=== PATIENT | male | born 1960 | race Caucasian/White ===

== ENCOUNTER 2023-03-15 09:11 | Outpatient (OUT) | payer MEDICARE, BC, SELFPAY ==
--- NOTE | 2023-03-15 09:33 | US_ITS ---
[address] [address] Patient Name: HERI BARROW MRN: [id number] date: 1960 Sex: M Assigned Patient Location: [place] Current Patient Location: US Accession/Order Number: [id number] Exam Date: 03/15/2023 09:35 Report Date: 03/15/2023 12:51 At the request of: NELSY MC Procedure: US carotid duplex BI EXAMINATION: US carotid duplex BI HISTORY: Bilateral carotid bruits R09.89 COMPARISON: No relevant comparison available. TECHNIQUE: Duplex Doppler ultrasound analysis of carotid and vertebral arteries. . Bilateral carotid arterial duplex examination was performed using B-mode, color flow and spectral analysis. Carotid stenosis is reported according to validated velocity parameters, similar to NASCET criteria. FINDINGS: RIGHT CAROTID ARTERY: Mild atherosclerotic narrowing of the bulb and proximal ICA. RIGHT VERTEBRAL: Antegrade flow. Subclavian: PSV: 181.0 cm/s EDV: 0.0 cm/s CCA: Prox: PSV: 115.9 cm/s EDV: 25.3 cm/s Mid: PSV: 109.0 cm/s EDV: 25.3 cm/s Distal: PSV: 90.4 cm/s EDV: 25.3 cm/s BULB: PSV: 72.5 cm/s EDV: 20.8 cm/s ICA: Prox: PSV: 57.0 cm/s EDV: 19.7 cm/s Mid: PSV: 110.8 cm/s EDV: 41.4 cm/s Distal: PSV: 112.4 cm/s EDV: 46.2 cm/s ECA: PSV: 130.1 cm/s EDV: 17.1 cm/s VERTEBRAL: PSV: 31.7 cm/s EDV: 0.0 cm/s ICA/CCA ratio: PSV: 1.2 EDV: 1.8 LEFT CAROTID ARTERY: Mild atherosclerotic narrowing of the bulb and proximal ICA. LEFT VERTEBRAL: Antegrade flow. Subclavian: PSV: 162.8 cm/s EDV: 0.0 cm/s CCA: Prox: PSV: 105.6 cm/s EDV: 22.9 cm/s Mid: PSV: 113.5 cm/s EDV: 24.8 cm/s Distal: PSV: 91.8 cm/s EDV: 22.9 cm/s BULB: PSV: 99.7 cm/s EDV: 22.9 cm/s ICA: Prox: PSV: 73.2 cm/s EDV: 30.3 cm/s Mid: PSV: 73.2 cm/s EDV: 29.2 cm/s Distal: PSV: 105.1 cm/s EDV: 40.2 cm/s ECA: PSV: 89.6 cm/s EDV: 13.8 cm/s VERTEBRAL: PSV: 64.4 cm/s EDV: 20.4 cm/s ICA/CCA ratio: PSV: 1.1 EDV: 1.8 US/US carotid duplex BI IMPRESSION: 1. 0-49% flow stenosis within the right left carotid arteries. 2. Mild atherosclerotic disease. Electronically authenticated by: SEGUNDO CRUZ Date: 03/15/2023 12:51
[2023-03-15 10:12] LABS: Prostate Specific Antigen Scrn 0.87 ng/mL (<=4.00)
[2023-03-15 10:20] LABS: Alanine Aminotransferase 22 U/L (16-63); Albumin Level 3.7 g/dL (3.4-5.0); Alkaline Phosphatase 60 U/L (46-116); Anion Gap 11.7; Aspartate Amino Transferase 17 U/L (15-37); BUN Creatinine Ratio 16.3; Bilirubin Total 0.3 mg/dL (0.2-1.0); Calcium 9.8 mg/dL (8.5-10.1); Carbon Dioxide 26.2 mmol/L (21.0-32.0); Chloride 103 mmol/L (98-107); Chol HDL Ratio 2.4; Cholesterol 130 mg/dL (<=200); Estimated GFR (African America >60 (>=60); Estimated GFR (Non-African Ame >60 (>=60); Globulin 3.6 g/dL; Glucose 111 mg/dL (74-106); HDL Cholesterol 54 mg/dL (40-60); LDL Cholesterol Calculated 68.8 mg/dL; Potassium 4.9 mmol/L (3.5-5.1); Sodium 136 mmol/L (136-145); Total Protein 7.3 g/dL (6.4-8.2); Triglycerides 36 mg/dL (<=150); VLDL CHOLESTEROL 7.2 mg/dL
[2023-03-15 10:25] LABS: Basophils Absolute Auto 0.1 10^3/uL (0.0-0.1); Basophils Percent Auto 0.9 % (0.2-2.0); Eosinophils Absolute Auto 0.2 10^3/uL (0.0-0.7); Eosinophils Percent Auto 1.9 % (0.9-7.0); Hematocrit 43.9 % (42.0-54.0); Hemoglobin 14.7 g/dL (14.0-18.0); Immature Granulocytes Abs Auto 0.21 10^3/uL (0.00-0.03); Lymphocytes Absolute Auto 1.6 10^3/uL (1.2-3.8); Lymphocytes Percent Auto 14.6 % (20.5-60.0); Mean Corpuscular HGB Conc 33.5 g/dL (29.9-35.2); Mean Corpuscular Hemoglobin 30.8 pg (25.9-34.0); Mean Corpuscular Volume 91.8 fL (80.0-94.0); Mean Platelet Volume 9.1 fL (9.5-13.5); Monocytes Percent Auto 9.1 % (1.7-12.0); Neutrophils Absolute Auto 7.7 10^3/uL (1.4-6.5); Neutrophils Percent Auto 71.5 % (43.0-75.0); Platelet Count 367 10^3/uL (150-450); Red Blood Count 4.78 10^6/uL (4.70-6.10); Red Cell Distribution Width 12.6 % (11.0-15.0); White Blood Count 10.7 10^3/uL (4.0-11.0)
== END 2023-03-15 09:12 | disposition home or self-care (01) ==
LOC: US 09:15
PROVIDERS: PCP Internal Medicine; Visit Provider Internal Medicine
DX: R09.89 Other specified symptoms and signs involving the circulatory and respiratory systems (principal); Z00.00 Encounter for general adult medical examination without abnormal findings; I65.23 Occlusion and stenosis of bilateral carotid arteries; I70.90 Unspecified atherosclerosis
CPT/HCPCS: 36415; 80053; 80061; 85025; 93880; G0103

== ENCOUNTER 2024-02-01 10:05 | Outpatient (OUT) | payer MEDICARE, BC, SELFPAY ==
[2024-02-01 10:28] LABS: Basophils Absolute Auto 0.1 10^3/uL (0.0-0.1); Basophils Percent Auto 0.7 % (0.2-2.0); Eosinophils Absolute Auto 0.3 10^3/uL (0.0-0.7); Eosinophils Percent Auto 2.7 % (0.9-7.0); Hematocrit 43.6 % (42.0-54.0); Hemoglobin 14.4 g/dL (14.0-18.0); Immature Granulocytes Abs Auto 0.21 10^3/uL (0.00-0.03); Immature Granulocytes Pct Auto 2.1 % (0.0-0.5); Lymphocytes Absolute Auto 1.7 10^3/uL (1.2-3.8); Lymphocytes Percent Auto 17.7 % (20.5-60.0); Mean Corpuscular Hemoglobin 30.7 pg (25.9-34.0); Monocytes Absolute Auto 0.8 10^3/uL (0.3-0.8); Monocytes Percent Auto 8.6 % (1.7-12.0); Neutrophils Absolute Auto 6.7 10^3/uL (1.4-6.5); Neutrophils Percent Auto 68.2 % (43.0-75.0); Platelet Count 296 10^3/uL (150-450); Red Blood Count 4.69 10^6/uL (4.70-6.10); Red Cell Distribution Width 12.5 % (11.0-15.0); White Blood Count 9.8 10^3/uL (4.0-11.0)
[2024-02-01 10:48] LABS: Alanine Aminotransferase 23 U/L (16-63); Albumin Globulin Ratio 1.1; Albumin Level 3.8 g/dL (3.4-5.0); Alkaline Phosphatase 69 U/L (46-116); Anion Gap 10.8; Aspartate Amino Transferase 19 U/L (15-37); BUN Creatinine Ratio 13.2; Bilirubin Total 0.6 mg/dL (0.2-1.0); Calcium 9.6 mg/dL (8.5-10.1); Carbon Dioxide 28.3 mmol/L (21.0-32.0); Chloride 101 mmol/L (98-107); Chol HDL Ratio 2.4; Cholesterol 139 mg/dL (<=200); Estimated GFR (African America >60 (>=60); Estimated GFR (Non-African Ame >60 (>=60); Globulin 3.6 g/dL; Glucose 103 mg/dL (74-106); HDL Cholesterol 59 mg/dL (40-60); LDL Cholesterol Calculated 69.6 mg/dL; Potassium 5.1 mmol/L (3.5-5.1); Sodium 135 mmol/L (136-145); Total Protein 7.4 g/dL (6.4-8.2); Triglycerides 52 mg/dL (<=150); VLDL CHOLESTEROL 10.4 mg/dL
== END 2024-02-01 10:06 | disposition home or self-care (01) ==
PROVIDERS: PCP Internal Medicine; Visit Provider Internal Medicine
DX: E78.00 Pure hypercholesterolemia, unspecified (principal); I10 Essential (primary) hypertension; Z12.5 Encounter for screening for malignant neoplasm of prostate; M06.4 Inflammatory polyarthropathy; F17.210 Nicotine dependence, cigarettes, uncomplicated
CPT/HCPCS: 36415; 80053; 80061; 85025; G0103

== ENCOUNTER 2025-02-02 10:05 | Outpatient (OUT) | payer MEDICARE, BC, SELFPAY ==
--- OUTSIDE RECORDS SUMMARY | 2025-02-02 10:11 | XMS_ITS | Referral Summary ---
Author Organization [facility] Address [address] [place] [address] Care Team Providers Care Instrument Technician Name Role Phone Daren Aldridge DO Primary Care Provider [phone] Allergies Active Allergy Reactions Criticality Noted Date Comments Penicillins Shortness of breath High 1960 Other reaction(s): Not available Medications Medication Sig Dispensed Refills Start Date End Date Status benazepril (Lotensin) 5 mg tablet Take 5 mg by mouth in the morning. 02/02/2020 Active simvastatin (Zocor) 40 mg tablet 07/26/2023 Active predniSONE (Deltasone) 5 mg tablet 05/07/2008 Active Active Problems No known active problems Social History Tobacco Use Types Packs/Day Years Used Date Smoking Tobacco: Every Day Cigarettes 0.5 46.9 Started: 03/06/1978 Smokeless Tobacco: Never Tobacco Cessation:Ready to Q uit: Not Asked; Counseling Given: Not Answered Alcohol Use Standard Drinks/Week Comments Yes 0 (1 standard drink = 0.6 oz pure alcohol) Occasional beer or liquor 3-4 times per month [facility] Utilities Answer Date Recorded In the past 12 months has [facility] [employer], gas, oil, or water [employer] threatened to shut off services in your home? No 09/28/2023 Humiliation, Afraid, Rape, and Kick questionnair e Answer Date Recorded Within the last year, have y ou been afraid of your partner or ex-partner? No 09/28/2023 Within the last year, have y ou been humiliated or emotionally abused in other ways by your partner or ex-partner? No Within the last year, have y ou been kicked, hit, slapped, or otherwise physically hurt by your partner or ex-partner? No 09/28/2023 Within the last year, have y ou been raped or forced to have any kind of sexual activity by your partner or ex-partner? No 09/28/2023 Overall Financial Resource Strain (CARDIA) Answe r Date Recorded How hard is it for you to pa y for the very basics like food, housing, medical care, and heating? Not hard at all 09/28/2023 PHQ-2 Answer Date Recorded Patient Health Questionnaire-2 Score 0 09/28/2023 [place] Safety & Environment Answer Date Rec orded Within the last year, have y ou been afraid of your partner or ex-partner? No 09/28/2023 Within the last year, have y ou been humiliated or emotionally abused in other ways by your partner or ex-partner? No Within the last year, have y ou been kicked, hit, slapped, or otherwise physically hurt by your partner or ex-partner? No 09/28/2023 Within the last year, have y ou been raped or forced to have any kind of sexual activity by your partner or ex-partner? No 09/28/2023 In the past year have you been physically or sex ually abused? 09/28/2023 Transportation Answer Date Recorded In the past 12 months, has l ack of transportation kept you from medical appointments or from getting medications? No 09/28/2023 Lack of Transportation (Non-Medical) Not on file 09/28/2023 Housing Stability Vital Sign Answer Maximo e Recorded Unable to Pay for Housing in the Last Year Not o n file 09/28/2023 Number of Places Lived in the Last Year Not on f ile 09/28/2023 In the last 12 months, was t here a time when you did not have a steady place to sleep or slept in a fpc (including now)? No 09/28/2023 Hunger Vital Sign Answer Date Recorded Within the past 12 months, y ou worried that your food would run out before you got the money to buy more. Never true 09/28/19 24 Ran Out of Food in the Last Year Not on file 09/28/2023 Sex and Gender Information Value Date Recorded Sex Assigned at Not on file Gender Identity Not on file Sexual Orientation Not on file Last Filed Vital Signs Vital Sign Reading Time Taken Comments Blood Pressure - - Pulse - - Temperature - - Respiratory Rate 16 08/31/2024 8:15 AM EST Oxygen Saturation - - Inhaled Oxygen Concentration - - Weight 88 kg (194 lb) 08/31/2024 8:15 AM EST Height 172.7 cm (5' 8 ) 08/31/2024 8:15 AM EST Body Mass Index 29.5 08/31/2024 8:15 AM EST Plan of Treatment Not on file Care Teams Instrument Technician Relationship Specialty Start Date End Date Daren Aldridge DO [address] [place] [address] PCP - General 06/14/23
--- OUTSIDE RECORDS SUMMARY | 2025-02-02 10:11 | XMS_ITS | Clinical Summary ---
Author Organization [facility] Address [address] [place] [address] Care Team Providers Care Spring Former Hand Name Role Phone Daren Aldridge DO Primary Care Provider [phone] Allergies Active Allergy Reactions Criticality Noted Date Comments Penicillins Shortness of breath High 1960 Other reaction(s): Not available Medications Medication Sig Dispensed Refills Start Date End Date Status benazepril (Lotensin) 5 mg tablet Take 5 mg by mouth in the morning. 02/02/2020 Active simvastatin (Zocor) 40 mg tablet 07/26/2023 Active predniSONE (Deltasone) 5 mg tablet 05/07/2008 Active Active Problems No known active problems Family History Medical History Relation Name Comments Cancer Mother Margie Rao Relation Name Status Comments Mother Margie Rao Social History Tobacco Use Types Packs/Day Years Used Date Smoking Tobacco: Every Day Cigarettes 0.5 46.9 Started: 03/06/1978 Smokeless Tobacco: Never Tobacco Cessation:Ready to Q uit: Not Asked; Counseling Given: Not Answered Alcohol Use Standard Drinks/Week Comments Yes 0 (1 standard drink = 0.6 oz pure alcohol) Occasional beer or liquor 3-4 times per month [facility] Utilities Answer Date Recorded In the past 12 months has [employer], gas, oil, or water [employer] threatened to shut off services in your [...] Recorded Patient Health Questionnaire-2 Score 0 09/28/2023 [place] Safety & Environment Answer Date Rec orded [...] place to sleep or slept in a halfway (including now)? No 09/28/2023 Hunger Vital Sign [...] 08/31/2024 8:15 AM EST Plan of Treatment Health Maintenance Due Date Last Done Comments CT Colonography 1960 Colonoscopy 1960 Colorectal Cancer Screening 1960 FIT-DNA 1960 FIT 1960 FOBT 1960 Medicare Annual Wellness (AWV) 1960 Sigmoidoscopy 1960 Pneumococcal Vaccine: 65+ Years (1 of 2 - PCV) 02/21/1964 Depression Screening 1970 Fall Risk Screening 2023 COVID-19 Vaccine ( season) 2024 06/10/2024, 06/08/2023, 06/03/2022, Additional history exists Adult Tetanus 05/18/2030 05/18/2020 Zoster Vaccines Completed 01/01/2024, 09/11/2023 Influenza Vaccine Completed 05/15/2024, , 05/10/2022, Additional history exists HIB Vaccines Aged Out No longer eligi ble based on patient's age to complete this topic HPV Vaccines Aged Out No longer eligi ble based on patient's age to complete this topic IPV Vaccines Aged Out No longer eligi ble based on patient's age to complete this topic Meningococcal B Vaccine Aged Out No l onger eligible based on patient's age to complete this topic Meningococcal Vaccine Aged Out No she deborah eligible based on patient's age to complete this topic Rotavirus Vaccines Aged Out No longer eligible based on patient's age to complete this topic Care Teams Spring Former Hand Relationship Specialty Start Date End Date Daren Aldridge DO [address] [place] [address] PCP - General 06/14/23
--- OUTSIDE RECORDS SUMMARY | 2025-02-02 10:13 | XMS_ITS | CCD ---
Author Organization [facility] Care Team Providers Care Shelf Drier Operator Name Role Phone LUIS CARLOS, DR WHITTINGTON Attending Unavailable BALL, DR WHITTINGTON Consulting Unavailable BALL, DR WHITTINGTON Primary Care Unavailable BALL, DR WHITTINGTON Admitting Unavailable BALL, DR WHITTINGTON Consulting Unavailable BALL, DR WHITTINGTON Primary Care Unavailable BALL, DR WHITTINGTON Admitting Unavailable BALL, DR WHITTINGTON Attending Unavailable BALL, DR WHITTINGTON Consulting Unavailable BALL, DR WHITTINGTON Primary Care Unavailable BALL, DR WHITTINGTON Admitting Unavailable BALL, DR WHITTINGTON Attending Unavailable Luis Carlos Daren Unavailable SISSY LOVE Attending Unavailable BALL, DAREN E Referring Unavailable BALL, DAREN E Primary Care Unavailable SISSY LOVE Referring Unavailable LUIS CARLOS, DAREN E Primary Care Unavailable SISSY LOVE Attending Unavailable SISSY LOVE Referring Unavailable BALL, DAREN E Primary Care Unavailable BALL, DAREN E Referring Unavailable BALL, DAREN E Primary Care Unavailable DORCAS LIU Attending Unavailable SISSY LOVE Admitting Unavailable SISSY LOVE Attending Unavailable LUIS CARLOS, DAREN E Primary Care Unavailable SISSY LOVE Attending Unavailable SISSY LOVE Referring Unavailable BALL, DAREN E Primary Care Unavailable ARON, KIP Attending Unavailable BALL, DAREN E Referring Unavailable BALL, DAREN E Primary Care Unavailable ARON, KIP Referring Unavailable BALL, DAREN E Primary Care Unavailable ARON, KIP Admitting Unavailable ARON, KIP Attending Unavailable BALL, DAREN E Primary Care Unavailable FRANCA COBIAN Attending Unavailable BALL, DAREN E Primary Care Unavailable BOBBI RIZO Attending Unavailable BALL, DAREN E Referring Unavailable BALL, DAREN E Primary Care Unavailable SKISAURABH Chahal Attending Unavailable SKIE, SAURABH Attending Unavailable SKIE, SAURABH Attending Unavailable Ball Daren DANIEL Primary Care Provider Allergies Allergy Classification Reported Allergen(s) Allergy Type Date of Onset Reaction(s) Facility (3 sources) Penicillin Drug Allergy Unknown [facility] Other (2 sources) Substance with penicillin structure and antibacterial mechanism of action (substance) Drug allergy Unknown [facility] Other (6 sources) Penicillins; Translations: [PENICILLINS] Propensity to adverse reactions to drug (disorder) 05-07-19 58 Shortness Of Breath [facility] Medications Current Medications Medication Drug Class(es) Dates Sig (Normalized) Sig (Original) aspirin 81 mg delayed release oral tablet (4 sources) Platelet Aggregation Inhibitor, Nonsteroidal Anti-inflammatory Drug take 1 tablet by mouth in the morning aspirin 81 mg Indications: myocardial infarction prevention Take 1 tablet (81 mg total) by mouth in the morning. Indications: treatment to prevent a heart attack. Holding since 02/27. Active benazepril hydrochloride 10 mg oral tablet (14 sources) Angiotensin Converting Enzyme Inhibitor Start: 08-08-2024 End: 09-18-2024 take 1 tablet by mouth once daily Benazepril 10 mg tablet Active 10 MG PO Daily September 18, 2024 12:21pm Start: 01-28-2024 End: 08-08-2024 take 1 tablet by mouth once daily Benazepril 5 mg tablet Discontinued 5 MG PO Daily January 27, 2024 11:00pm August 08, 2024 10:15am oxyCODONE hydrochloride 5 mg oral tablet (1 source) Opioid Agonist Start: 03-06-2024 take 1 tablet by mouth every six hours as needed for pain oxyCODONE (ROXICODONE) 5 mg immediate release tablet Indications: Post-op pain Take 1 tablet (5 mg total) by mouth every 6 (six) hours as needed for pain for up to 10 doses. Max Daily Amount: 20 mg 10 tablet 03/06/2024 Active predniSONE 5 mg oral tablet (6 sources) Start: 08-08-2024 take 1 tablet by mouth once daily as needed for pain Prednisone 5 mg tablet Active 5 MG PO Daily as needed for pain August 08, 2024 12:00am Start: 08-03-2023 take 1 tablet by darian th every twenty-four hours predniSONE 5 MG 1 tablet Orally Once a day for 30 days Jul, Active simvastatin 40 mg oral tablet (12 sources) HMG-CoA Reductase Inhibitor Start: 01-28-2024 take 1 tablet by mouth once daily in the evening Simvastatin 40 mg tablet Active 40 MG PO Every evening January 27, 2024 11:00pm tadalafil 20 mg oral tablet (8 sources) Phosphodiesterase 5 Inhibitor Start: 01-28-2024 take 1 tablet by mouth once daily Tadalafil 20 mg tablet Active 20 MG PO Daily January 27, 2024 11:00pm take 1 tablet by darian every twenty-four hours Cialis 20 MG 1 tablet as needed Orally Once a day Active Completed/Discontinued Medications Medication Drug Class(es) Dates Sig (Normalized) Sig (Original) paxlovid (300/100) 20 x 150 mg & 10 x 100mg tablet therapy pack (1 source) Start: 11-03-2022 take 3 tablets by mouth every twelve hours Paxlovid (300/100) 20 x 150 MG & 10 x 100MG 3 tablets Orally Twice a day for 5 day(s) Oct, Not-Taking/PRN {20 (nirmatrelvir 150 MG Oral Tablet) / 10 (ritonavir 100 MG Oral Tablet) } Pack [Paxlovid 5-Day] (4 sources) Start: 11-03-2022 take 3 tablets by mouth every twelve hours Paxlovid (300/100) 20 x 150 MG & 10 x 100MG 3 tablets Orally Twice a day for 5 day(s) Oct, Not-Taking Start: 11-03-2022 take 3 tablets by mo mah every twelve hours Paxlovid (300/100) 20 x 150 MG & 10 x 100MG 3 tablets Orally Twice a day for 5 day(s) Oct, Active Problems Active Problems Problem Classification Problem Date Documented Date Episodic/Chronic Abdominal hernia (6 sources) Incisional hernia without obstruction or gangrene; Translations: [Ventral hernia without obstruction or gangrene] Onset: 01-04-2024 Resolved: 03-23-2024 01-04-2024 Episodic Deficiency and other anemia (1 source) Anemia; Translations: [Anemia, unspecified] Episodic Diseases of white blood cells (5 sources) Elevated white blood cell count, unspecified; Translations: [Leukocytosis] Onset: 02-21-2022 Chronic Disorders of lipid metabolism (14 sources) Familial hypercholesterolemia; Translations: [Pure hypercholesterolemia] Onset: 02-06-2022 Chronic Essential hypertension (16 sources) Essential (primary) hypertension; Translations: [Essential hypertension] Onset: 02-06-2022 Chronic Fluid and electrolyte disorders (2 sources) Hypo-osmolality and hyponatremia; Translations: [Hyponatremia] Onset: 02-24-2022 Episodic Heart valve disorders (5 sources) Mitral valve regurgitation; Translations: [Nonrheumatic mitral (valve) insufficiency] Chronic Hyperplasia of prostate (10 sources) Lower urinary tract symptoms due to benign prostatic hypertrophy; Translations: [Benign prostatic hyperplasia with lower urinary tract symptoms] 01-29-2024 Chronic Melanomas of skin (5 sources) Malignant melanoma of skin; Translations: [Malignant melanoma of skin, unspecified] Chronic Osteoarthritis (3 sources) Osteoarthritis of joint of right shoulder region; Translations: [Primary osteoarthritis, right shoulder] Chronic Other aftercare (1 source) 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; Translations: [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 THERAPY] Onset: 02-06-2022 Episodic Other circulatory disease (1 source) Other specified symptoms and signs involving the circulatory and respiratory systems Episodic Other connective tissue disease (1 source) Polymyalgia rheumatica; Translations: [Polymyalgia rheumatica] Chronic Other connective tissue disease (1 source) Bicipital tenosynovitis; Translations: [Bicipital tendinitis, right shoulder] Episodic Other connective tissue disease (5 sources) History of polymyalgia rheumatica; Translations: [Personal history of other diseases of the musculoskeletal system and connective tissue] Episodic Other connective tissue disease (5 sources) Acquired trigger finger; Translations: [Trigger finger, left index finger] Episodic Other connective tissue disease (1 source) Trigger finger, right index finger Episodic Other connective tissue disease (2 sources) Trigger finger, unspecified finger; Translations: [Trigger finger, unspecified finger] Onset: 08-31-2024 Episodic Other connective tissue disease (1 source) Triggering of digit; Translations: [Trigger finger, right middle finger] 08-08-2024 Episodic Other connective tissue disease (1 source) Trigger finger, right middle finger; Translations: [Trigger finger (acquired)] 08-08-2024 Episodic Other male genital disorders (5 sources) Impotence of organic origin; Translations: [Erectile dysfunction due to arterial insufficiency] Chronic Other nervous system disorders (5 sources) Carpal tunnel syndrome of right wrist; Translations: [Carpal tunnel syndrome, right upper limb] Chronic Other nervous system disorders (4 sources) Carpal tunnel syndrome; Translations: [Carpal tunnel syndrome, bilateral upper limbs] Chronic Other nervous system disorders (4 sources) Carpal tunnel syndrome, bilateral upper limbs; Translations: [Carpal tunnel syndrome, bilateral upper limbs] Onset: 08-31-2024 Chronic Other nervous system disorders (2 sources) Carpal tunnel syndrome, left upper limb; Translations: [Carpal tunnel syndrome, left upper limb] Onset: 09-28-2023 Chronic Other nervous system disorders (2 sources) Carpal tunnel syndrome, right upper limb; Translations: [Carpal tunnel syndrome, right upper limb] Onset: 09-28-2023 Chronic Other nervous system disorders (1 source) Other acute postprocedural pain; Translations: [Other acute postprocedural pain] Onset: 03-06-2024 Episodic Other nutritional; endocrine; and metabolic disorders (5 sources) Overweight; Translations: [Overweight] Episodic Other nutritional; endocrine; and metabolic disorders (1 source) Overweight Episodic Rheumatoid arthritis and related disease (11 sources) Inflammatory polyarthropathy; Translations: [Inflammatory polyarthropathy] 01-29-2024 Chronic Spondylosis; intervertebral disc disorders; other back problems (5 sources) Cervical spondylosis without myelopathy; Translations: [Other spondylosis with radiculopathy, cervical region] Chronic Substance-related disorders (19 sources) Tobacco user; Translations: [Nicotine dependence, cigarettes, uncomplicated] Chronic Unclassified (1 source) Change in bowel habits [R19.4] Onset: 01-27-2024 Unclassified (1 source) Establish Care Onset: 01-04-2024 Unclassified (1 source) New Patient Onset: 12-13-2023 Past or Other Problems Problem Classification Problem Date Documented Da te Episodic/Chronic Deficiency and other anemia (4 sources) Anemia, unspecified; Translations: [ANEMIA UNSPECIFIED] Onset: 07-16-2021 Episodic Other gastrointestinal disorders (1 source) Change in bowel habit; Translations: [Change in bowel habit] Onset: 12-14-2023 Episodic Other gastrointestinal disorders (4 sources) Altered bowel function; Translations: [Change in bowel habit] Onset: 12-13-2023 12-14-2023 Episodic Other screening for suspected conditions (not mental disorders or infectious disease) (7 sources) Encounter for screening for malignant neoplasm of prostate; Translations: [Screening for malignant neoplasms of prostate] Onset: 08-12-2017 02-01-2024 Episodic Viral infection (1 source) COVID-19 Results Test Name Value Interpretation Reference Range Facility Follow-Upon 08-31-2024 Follow-Up [id number] Heri Rao 1960 M Date Provider Department Center 08/31/2024 SAURABH WALTERS [facility] Family History Problem Relation Age of Onset Cancer Mother Family Status - Relation Status Age at Mother Level of Service:14357 [place] OFFICE/OUTPATIENT ESTABLISHED LOW MDM 20 MIN (25,GC) Reason for Visit and Comments: Follow-up [015454] Follow-up [279952] Normal [facility] Surgical Pathologyon 024 Surgical Pathology Normal [facility] Comment on above: Result Comment: [employer] [facility] [address] [place] [address] Surgical Pathology Consultation Patient Name:HERI RAO.:1960 (Age: 64)Gender:MTaken:03/06/2024eported:03/10/2024hysician(s):Kip Nieves M.D. ([phone])Copy To: Rec. #:[id number]: #[id number] Final Pathologic Diagnosis Incisional hernia repair: Benign mesothelium-lined fibroadipose tissue, consistent with hernia sac. Report Electronically Signed Out ao/03/10/2024jerry Lala MD Interpretation [place] [address], License number: [id number]. Clinical History Incisional hernia simple, umbilical. Gross Description Received in formalin labeled DANIAL, hernia contents is a saccular portion of yellow-mullen fibromembranous soft tissue, 4 x 2.5 x 1 cm in aggregate. The specimen is serially sectioned and no masses hemorrhage or necrosis are identified. Independent Trader cross-sections are submitted in a single cassette. (1, ss, [id number], m1) TB tgb/03/06/2024GR Specimen(s) Received Hernia contents Fee Codes(s): 1; 25064 Basophils Auto (Bld) [#/Vol] on 02-01-2024 Basophils (Bld) [#/Vol] 0.1 10 3/uL 0.0-0.1 [facility] Basophils/100 WBC Auto (Bld) on 02-01-2024 Basophils/100 WBC (Bld) 0.7 % 0.2-2.0 [facility] Cholesterol in LDL Calc [Mas s/Vol]on 02-01-2024 Cholesterol in LDL [Mass/Vol] 69.6 mg/dL [facility] Comment on above: <100 mg/dl [id number] 0-129 mg/dl NEAR OR ABOVE [id number] mg/dl BORDERLINE [id number] mg/dl HIGH>190 mg/dl VERY HIGH Cholesterol in VLDL Calc [Ma ss/Vol]on 02-01-2024 Cholesterol in VLDL [Mass/Vol] 10.4 mg/dL [facility] Eosinophils/100 WBC Auto (Bl d)on 02-01-2024 Eosinophils/100 WBC (Bld) 2.7 % 0.9-7.0 [facility] Erythrocyte distribution wid th Auto (RBC) [Ratio]on 02-01-2024 Erythrocyte distribution width (RBC) [Ratio] 12.5 % 11.0-15.0 [facility] Estimated glomerular filtrat ion rate (GFR) non- Americanon 02-01-2024 GFR/1.73 sq M.predicted among non-blacks MDRD (S/P/Bld) [Vol rate/Area] mL/min/{1.73_m2} >=60 [facility] Globulin Calc (S) [Mass/Vol] on 02-01-2024 Globulin (S) [Mass/Vol] 3.6 g/dL [facility] Hematocrit Auto (Bld) [Volum e fraction]on 02-01-2024 Hematocrit (Bld) [Volume fraction] 43.6 % 42.0-54.0 [facility] Hemoglobin [Mass/volume] in Bloodon 02-01-2024 Hemoglobin (Bld) [Mass/Vol] 14.4 g/dL 14.0-18.0 [facility] Laboratory - Chemistry and C hemistry - challengeon 02-01-2024 Albumin [Mass/Vol] 3.8 g/dL 3.4-5.0 [facility] ALP [Catalytic activity/Vol] 69 U/L 46-116 [facility] ALT [Catalytic activity/Vol] 23 U/L 16-63 [facility] AST [Catalytic activity/Vol] 19 U/L 15-37 [facility] Bilirubin [Mass/Vol] 0.6 mg/dL 0.2-1.0 [facility] Calcium [Mass/Vol] 9.6 mg/dL 8.5-10.1 [facility] Chloride [Moles/Vol] 101 mmol/L 98-107 [facility] Cholesterol [Mass/Vol] 139 mg/dL <=200 [facility] Cholesterol in HDL [Mass/Vol] 59 mg/dL 40-60 [facility] Comment on above: > or =60 mg/dl - LOW CARDIOVASCULAR RISK<40 mg/dl - HIGH CARDIOVASCULAR RISK CO2 [Moles/Vol] 28.3 mmol/L 21.0-32.0 [facility] Creatinine [Mass/Vol] 0.91 mg/dL 0.70-1.30 [facility] GFR/1.73 sq M.predicted MDRD (S/P/Bld) [Vol rate/Area] mL/min/{1.73_m2} >=60 [facility] Glucose [Mass/Vol] 103 mg/dL 74-106 [facility] Potassium [Moles/Vol] 5.1 mmol/L 3.5-5.1 [facility] Protein [Mass/Vol] 7.4 g/dL 6.4-8.2 [facility] Sodium [Moles/Vol] 135 mmol/L Low 136-145 [facility] Triglyceride [Mass/Vol] 52 mg/dL <=150 [facility] Urea nitrogen [Mass/Vol] 12.0 mg/dL 7.0-18.0 [facility] Urea nitrogen/Creatinine [Mass ratio] 13.2 mg/mg [facility] Laboratory - Hematology and Cell countson 02-01-2024 Immature granulocytes/100 WBC (Bld) 2.1 % High 0.0-0.5 [facility] Leukocytes [#/volume] correc mariely for nucleated erythrocytes in Blood by Automated counon 02-01-2024 WBC corrected for nucl RBC Auto (Bld) [#/Vol] 9.8 10 3/uL 4.0-11.0 [facility] Lymphocytes Auto (Bld) [#/Vo l]on 02-01-2024 Lymphocytes (Bld) [#/Vol] 1.7 10 3/uL 1.2-3.8 [facility] Lymphocytes/100 WBC Auto (Bl d)on 02-01-2024 Lymphocytes/100 WBC (Bld) 17.7 % Low 20.5-60.0 [facility] MCH Auto (RBC) [Entitic mass ]on 02-01-2024 MCH (RBC) [Entitic mass] 30.7 pg 25.9-34.0 [facility] MCHC Auto (RBC) [Mass/Vol]on 02-01-2024 MCHC (RBC) [Mass/Vol] 33.0 g/dL 29.9-35.2 [facility] MCV Auto (RBC) [Entitic vol] on 02-01-2024 MCV (RBC) [Entitic vol] 93.0 fL 80.0-94.0 [facility] Monocytes Auto (Bld) [#/Vol] on 02-01-2024 Monocytes (Bld) [#/Vol] 0.8 10 3/uL 0.3-0.8 [facility] Monocytes/100 WBC Auto (Bld) on 02-01-2024 Monocytes/100 WBC (Bld) 8.6 % 1.7-12.0 [facility] Neutrophils Auto (Bld) [#/Vo l]on 02-01-2024 Neutrophils (Bld) [#/Vol] 6.7 10 3/uL High 1.4-6.5 [facility] Neutrophils/100 WBC Auto (Bl d)on 02-01-2024 Neutrophils/100 WBC (Bld) 68.2 % 43.0-75.0 [facility] No Panel Informationon 01-31 Eosinophils # (Auto) 0.3 10 3/uL 0.0-0.7 [facility] Immature Granulocyte # (Auto) 0.21 10 3/uL High 0.00-0.03 [facility] Prostate Specific Antigen Screen 0.70 ng/mL <=4.00 [facility] Platelet mean volume Auto (B ld) [Entitic vol]on 02-01-2024 Platelet mean volume (Bld) [Entitic vol] 9.0 fL Low 9.5-13.5 [facility] Platelets Auto (Bld) [#/Vol] on 02-01-2024 Platelets (Bld) [#/Vol] 296 10 3/uL 150-450 [facility] RBC Auto (Bld) [#/Vol]on RBC (Bld) [#/Vol] 4.69 10 6/uL Low 4.70-6.10 [facility] Serum or plasma albumin/glob ulin mass ratioon 02-01-2024 Albumin/Globulin [Mass ratio] 1.1 {ratio} [facility] Serum or plasma anion gap de terminationon 02-01-2024 Anion gap [Moles/Vol] 10.8 mmol/L [facility] Serum or plasma total choles terol/high density lipoprotein (HDL) cholesterol mass manuelito 02-01-2024 Cholesterol.total/Ch olesterol in HDL [Mass ratio] 2.4 {ratio} [facility] Comment on above: 3.3 - 4.4 LOW RISK4. 4 - 7.1 AVERAGE RISK7.1 - 11.0 MODERATE RISK>11.[address] ABDOMEN AND PELVIS W CONT on 12-27-2023 CT ABDOMEN AND PELVIS W CONT CT ABDOMEN AND PELVIS W CONT CT ABDOMEN AND PELVIS W CONT CLINICAL INFORMATION: Palpable periumbilical lump, concern for hernia. Constipation. History of diverticulitis with partial colectomy 12 years ago. COMPARISON: CT abdomen and pelvis with oral and IV contrast 02/22/2012. TECHNIQUE: CT of the abdomen/pelvis with intravenous contrast. All CT scans at this facility use dose modulation, iterative reconstruction, and/or weight based dosing when appropriate to reduce radiation dose to as low as reasonably achievable. FINDINGS: LOWER CHEST: Lung bases are clear. No pleural or pericardial effusion. LIVER AND BILIARY: Scattered subcentimeter hypoattenuating lesions throughout the liver are too small to characterize, but are statistically likely to represent cysts. The gallbladder is unremarkable. PANCREAS: Unremarkable morphology. No peripancreatic fluid, ductal dilatation, or mass. SPLEEN: Not enlarged. ADRENALS: Unremarkable morphology. KIDNEYS: Symmetric enhancement bilaterally. Unremarkable size and morphology. No renal calculi or collecting system dilatation visualized. GI TRACT AND PERITONEUM: Unremarkable morphology of the stomach. Moderate duodenal diverticulum. Normal caliber small and large bowel. The appendix is unremarkable. VASCULATURE: Right-sided IVC. The abdominal aorta is nonaneurysmal. Aortoiliac calcifications. The portal, splenic, and superior mesenteric veins are grossly patent. Rectosigmoid anastomosis site appears unremarkable. LYMPH NODES: No enlarged mesenteric or retroperitoneal lymph nodes. MUSCULOSKELETAL: No aggressive osseous lesions. Multilevel degenerative changes of the thoracolumbar spine. There is a midline supraumbilical fat-containing hernia with defect measuring 0.5 cm (602, 92/171). No bowel containing hernia identified. PELVIS: The bladder and prostate are unremarkable. IMPRESSION: * 0.5 cm supraumbilical fat-containing hernia. No bowel containing hernia is identified. * Duodenal diverticulum. Approved by Resident Alberto Duke MD on 12/27/2023 9:40 AM IDawit MD have personally reviewed the image(s) and agree with and/or edited the report Finalized by Dawit Capps MD on 12/27/2023 10:33 AM [facility] CREATININEon 12-13-2023 Creatinine [Mass/Vol] 0.93 mg/dL Normal 0.60-1.30 [facility] Comment on above: Result Comment: METH OD TRACEABLE TO IDMS STANDARD Performed By: #### C RT #### [facility] ([id number]) [address], [address] [place] [address] eGFR (CKD-EPI) NON-RACE DEPENDENT >90 Normal >59 [facility] Comment on above: Result Comment: Reported eGFR is based on the CKD-EPI 2020 equation that does not use a race coefficient. Performed By: #### C RT #### [facility] ([id number]) [address], [address] [place] [address] Follow-Upon 11-09-2023 Follow-Up [id number] Heri Rao 1960 M Date Provider Department Center 11/09/2023 SAURABH WALTERS [facility] Family History Problem Relation Age of Onset Cancer Mother Family Status - Relation Status Age at Mother Level of Service:27909 [place] OFFICE/OUTPATIENT ESTABLISHED SF MDM 10 MIN Reason for Visit and Comments: Follow-up [472727] Normal [facility] Follow-Upon 09-28-2023 Follow-Up [id number] Heri Rao 1960 M Date Provider Department Center 09/28/2023 SAURABH WALTERS [facility] Family History Problem Relation Age of Onset Cancer Mother Family Status - Relation Status Age at Mother Level of Service:01549 [place] OFFICE/OUTPATIENT ESTABLISHED LOW MDM 20 MIN (25,GC,50) Reason for Visit and Comments: Follow-up [893220] Follow-up [865529] [facility] OSMOLALITYon 02-24-2022 Osmolality [Osmolality] 277 mosm/kg Critically low 280-301 [facility] Comment on above: Performed By: #### P SASC #### [facility] [address] [place] [address] Dr. Helen Cifuentes OSMOLALITY URINEon Osmolality, Urine 232 mOsmol/kg Normal [facility] Comment on above: Result Comment: 24 h r : 300 - 900 Random: 50 - 1400 After 12hr fluid restriction: >850 Performed By: #### O SMOU #### [facility] [address] [place] [address] Dr. Helen Cifuentes CBC AUTO DIFFon 02-21-2022 BASO # 0.1 103/ul Normal 0.0-0.1 [facility] Comment on above: Performed By: #### C BC #### [facility] [address] [place] [address] Dr. Helen Cifuentes Basophils/100 WBC (Bld) 1.1 % Normal 0.2-2.0 [facility] Comment on above: Performed By: #### C BC #### [facility] [address] [place] [address] Dr. Helen Cifuentes EO # 0.3 103/ul Normal 0.0-0.7 [facility] Comment on above: Performed By: #### C BC #### [facility] [address] [place] [address] Dr. Helen Cifuentes Eosinophils/100 WBC (Bld) 3.6 % Normal 0.9-7.0 [facility] Comment on above: Performed By: #### C BC #### [facility] [address] [place] [address] Dr. Helen Cifuentes Erythrocyte distribution width (RBC) [Ratio] 13.1 % Normal 11.0-15.0 [facility] Comment on above: Performed By: #### C BC #### [facility] [address] [place] [address] Dr. Helen Cifuentes Hematocrit (Bld) [Volume fraction] 44.2 % Normal 42.0-54.0 [facility] Comment on above: Performed By: #### C BC #### [facility] [address] [place] [address] Dr. Helen Cifuentes Hemoglobin (Bld) [Mass/Vol] 14.6 g/dL Normal 14.0-18.0 [facility] Comment on above: Performed By: #### C BC #### [facility] [address] [place] [address] Dr. Helen Cifuentes IG # 0.14 10e3/ul Critically high 0.00-0.03 [facility] Comment on above: Performed By: #### C BC #### [facility] [address] [place] [address] Dr. Helen Cifuentes IG % 1.5 % Critically high 0.0-0.5 [facility] Comment on above: Performed By: #### C BC #### [facility] [address] [place] [address] Dr. Helen Cifuentes LYMPH # 1.4 103/ul Normal 1.2-3.8 [facility] Comment on above: Performed By: #### C BC #### [facility] [address] [place] [address] Dr. Helen Cifuentes Lymphocytes/100 WBC (Bld) 15.0 % Critically low 20.5-60.0 [facility] Comment on above: Performed By: #### C BC #### [facility] [address] [place] [address] Dr. Helen Cifuentes MANUAL DIFF REQ NO Normal [facility] Comment on above: Performed By: #### C BC #### [facility] [address] [place] [address] Dr. Helen Cifuentes MCH (RBC) [Entitic mass] 30.4 pg Normal 25.9-34.0 [facility] Comment on above: Performed By: #### C BC #### [facility] [address] [place] [address] Dr. Helen Cifuentes MCHC (RBC) [Mass/Vol] 33.0 g/dL Normal 29.9-35.2 [facility] Comment on above: Performed By: #### C BC #### [facility] [address] [place] [address] Dr. Helen Cifuentes MCV (RBC) [Entitic vol] 92.1 fL Normal 80.0-94.0 [facility] Comment on above: Performed By: #### C BC #### [facility] [address] [place] [address] Dr. Helen Cifuentes MONO # 0.8 103/ul Normal 0.3-0.8 [facility] Comment on above: Performed By: #### C BC #### [facility] [address] [place] [address] Dr. Helen Cifuentes Monocytes/100 WBC (Bld) 8.9 % Normal 1.7-12.0 [facility] Comment on above: Performed By: #### C BC #### [facility] [address] [place] [address] Dr. Helen Cifuentes NEUT # 6.6 103/ul Critically high 1.4-6.5 [facility] Comment on above: Performed By: #### C BC #### [facility] [address] [place] [address] Dr. Helen Cifuentes Neutrophils/100 WBC (Bld) 69.9 % Normal 43.0-75.0 [facility] Comment on above: Performed By: #### C BC #### [facility] [address] [place] [address] Dr. Helen Cifuentes Platelet mean volume (Bld) [Entitic vol] 8.7 fL Critically low 9.5-13.5 [facility] Comment on above: Performed By: #### C BC #### [facility] [address] [place] [address] Dr. Helen Cifuentes PLT 296 103/ul Normal 150-450 [facility] Comment on above: Performed By: #### C BC #### [facility] [address] [place] [address] Dr. Helen Cifuentes RBC 4.80 106/ul Normal 4.70-6.10 [facility] Comment on above: Performed By: #### C BC #### [facility] [address] [place] [address] Dr. Helen Cifuentes WBC 9.5 103/ul Normal 4.0-11.0 [facility] Comment on above: Performed By: #### C BC #### [facility] [address] [place] [address] Dr. Helen Cifuentes PROF CHEM 8 (BAS METB)on Anion gap [Moles/Vol] 10.9 mmol/L Normal [facility] Comment on above: Performed By: #### B MP #### [facility] [address] [place] [address] Dr. Helen Cifuentes Calcium [Mass/Vol] 9.5 mg/dL Normal 8.5-10.1 [facility] Comment on above: Performed By: #### B MP #### [facility] [address] [place] [address] Dr. Helen Cifuentes Chloride [Moles/Vol] 102 mmol/L Normal 98-107 [facility] Comment on above: Performed By: #### B MP #### [facility] [address] [place] [address] Dr. Helen Cifuentes CO2 [Moles/Vol] 28.7 mmol/L Normal 21.0-32.0 [facility] Comment on above: Performed By: #### B MP #### [facility] [address] [place] [address] Dr. Helen Cifuentes Creatinine [Mass/Vol] 0.88 mg/dL Normal 0.70-1.30 [facility] Comment on above: Performed By: #### B MP #### [facility] [address] [place] [address] Dr. Helen Cifuentes EGFR-AF ZAMBIAN >60 Normal >=60 [facility] Comment on above: Performed By: #### B MP #### [facility] [address] [place] [address] Dr. Helen Cifuentes EGFR-NON AF ZAMBIAN >60 Normal >=60 [facility] Comment on above: Performed By: #### B MP #### [facility] [address] [place] [address] Dr. Helen Cifuentes Glucose [Mass/Vol] 106 mg/dL Normal 74-106 [facility] Comment on above: Performed By: #### B MP #### [facility] [address] [place] [address] Dr. Helen Cifuentes Potassium [Moles/Vol] 4.6 mmol/L Normal 3.5-5.1 [facility] Comment on above: Performed By: #### B MP #### [facility] [address] [place] [address] Dr. Helen Cifuentes Sodium [Moles/Vol] 137 mmol/L Normal 136-145 [facility] Comment on above: Performed By: #### B MP #### [facility] [address] [place] [address] Dr. Helen Cifuentes Urea nitrogen [Mass/Vol] 13.0 mg/dL Normal 7.0-18.0 [facility] Comment on above: Performed By: #### B MP #### [facility] [address] [place] [address] Dr. Helen Cifuentes Urea nitrogen/Creatinine [Mass ratio] 14.8 mg/mg Normal [facility] Comment on above: Performed By: #### B MP #### [facility] [address] [place] [address] Dr. Helen Cifuentes SODIUM RANDOM URINEon 2021 Sodium (U) [Moles/Vol] 40 mmol/L Normal 30-90 [facility] Comment on above: Performed By: #### N AU #### [facility] [address] [place] [address] Dr. Helen Cifuentes CBC AUTO DIFFon 01-31-2022 BASO # 0.1 103/ul Normal 0.0-0.1 [facility] Comment on above: Performed By: #### C BC #### [facility] [address] [place] [address] Dr. Helen Cifuentes Basophils/100 WBC (Bld) 0.7 % Normal 0.2-2.0 [facility] Comment on above: Performed By: #### C BC #### [facility] [address] [place] [address] Dr. Helen Cifuentes EO # 0.4 103/ul Normal 0.0-0.7 [facility] Comment on above: Performed By: #### C BC #### [facility] [address] [place] [address] Dr. Helen Cifuentes Eosinophils/100 WBC (Bld) 2.1 % Normal 0.9-7.0 [facility] Comment on above: Performed By: #### C BC #### [facility] [address] [place] [address] Dr. Helen Cifuentes Erythrocyte distribution width (RBC) [Ratio] 13.0 % Normal 11.0-15.0 [facility] Comment on above: Performed By: #### C BC #### [facility] [address] [place] [address] Dr. Helen Cifuentes Hematocrit (Bld) [Volume fraction] 43.8 % Normal 42.0-54.0 [facility] Comment on above: Performed By: #### C BC #### [facility] [address] [place] [address] Dr. Helen Cifuentes Hemoglobin (Bld) [Mass/Vol] 14.9 g/dL Normal 14.0-18.0 [facility] Comment on above: Performed By: #### C BC #### [facility] [address] [address] [address] Helen Cifuentes IG # 0.18 10e3/ul Critically high 0.00-0.03 [facility] Comment on above: Performed By: #### C BC #### [facility] [address] [address] [address] Helen Cifuentes IG % 1.1 % Critically high 0.0-0.5 [facility] Comment on above: Performed By: #### C BC #### [facility] [address] [address] [address] Helen Cifuentes LYMPH # 1.7 103/ul Normal 1.2-3.8 [facility] Comment on above: Performed By: #### C BC #### [facility] [address] [place] [address] Dr. Helen Cifuentes Lymphocytes/100 WBC (Bld) 10.1 % Critically low 20.5-60.0 [facility] Comment on above: Performed By: #### C BC #### [facility] [address] [place] [address] Dr. Helen Cifuentes MANUAL DIFF REQ NO Normal [facility] Comment on above: Performed By: #### C BC #### [facility] [address] [place] [address] Dr. Helen Cifuentes MCH (RBC) [Entitic mass] 30.7 pg Normal 25.9-34.0 [facility] Comment on above: Performed By: #### C BC #### [facility] [address] [address] [address] Helen Cifuentes MCHC (RBC) [Mass/Vol] 34.0 g/dL Normal 29.9-35.2 [facility] Comment on above: Performed By: #### C BC #### [facility] [address] [place] [address] Dr. Helen Cifuentes MCV (RBC) [Entitic vol] 90.1 fL Normal 80.0-94.0 [facility] Comment on above: Performed By: #### C BC #### [facility] [address] [address] [address] Helen Cifuentes MONO # 1.1 103/ul Critically high 0.3-0.8 [facility] Comment on above: Performed By: #### C BC #### [facility] [address] [address] [address] Helen Cifuentes Monocytes/100 WBC (Bld) 6.5 % Normal 1.7-12.0 [facility] Comment on above: Performed By: #### C BC #### [facility] [address] [address] [address] Helen Cifuentes NEUT # 13.1 103/ul Critically high 1.4-6.5 [facility] Comment on above: Performed By: #### C BC #### [facility] [address] [address] [address] Helen Cifuentes Neutrophils/100 WBC (Bld) 79.5 % Critically high 43.0-75.0 [facility] Comment on above: Performed By: #### C BC #### [facility] [address] [address] [address] Helen Cifuentes Platelet mean volume (Bld) [Entitic vol] 9.2 fL Critically low 9.5-13.5 [facility] Comment on above: Performed By: #### C BC #### [facility] [address] [address] [address] Helen Cifuentes PLT 302 103/ul Normal 150-450 [facility] Comment on above: Performed By: #### C BC #### [facility] [address] [address] [address] Helen Cifuentes RBC 4.86 106/ul Normal 4.70-6.10 [facility] Comment on above: Performed By: #### C BC #### [facility] [address] [address] [address] Helen Cifuentes WBC 16.4 103/ul Critically high 4.0-11.0 [facility] Comment on above: Performed By: #### C BC #### [facility] [address] [place], [place] [address] Dr. Helen Cifuentes LIPID PROFILEon 01-31-2022 CHOL-HDL RATIO NORM SEE BELOW Normal [facility] Comment on above: Result Comment: 3.3 - 4.4 LOW RISK 4.4 - 7.1 AVERAGE RISK 7.1 - 11.0 MODERATE RISK >11.0 HIGH RISK Performed By: #### P SASC #### [facility] [address] [address] [address] Helen Cifuentes Cholesterol [Mass/Vol] 116 mg/dL Normal <=200 [facility] Comment on above: Performed By: #### P SASC #### [facility] [address] [address] [address] Helen Cifuentes Cholesterol in HDL [Mass/Vol] 49 mg/dL Normal 40-60 [facility] Comment on above: Performed By: #### P SASC #### [facility] [address] [address] [address] Helen Cifuentes Cholesterol in LDL [Mass/Vol] 58.4 mg/dL Normal [facility] Comment on above: Performed By: #### P SASC #### [facility] [address] [address] [address] Helen Cifuentes Cholesterol.total/Ch olesterol in HDL [Mass ratio] 2.4 {ratio} Normal [facility] Comment on above: Performed By: #### P SASC #### [facility] [address] [address] [address] Helen Cifuentes HDL NORMAL > or = 60 mg/dl - LOW CARDIOVASCULAR RISK <40 mg/dl - HIGH CARDIOVASCULAR RISK Normal [facility] Comment on above: Performed By: #### P SASC #### [facility] [address] [address] [address] Helen Cifuentes LDL CALC NORMAL SEE BELOW Normal [facility] Comment on above: Result Comment: <100 mg/dl OPTIMAL 100 - 129 mg/dl NEAR OR ABOVE OPTIMAL 130 - 159 mg/dl BORDERLINE HIGH 160 - 189 mg/dl HIGH >190 mg/dl VERY HIGH Performed By: #### P SASC #### [facility] [address] [place] [address] Dr. Helen Cifuentes Triglyceride [Mass/Vol] 43 mg/dL Normal <=150 [facility] Comment on above: Performed By: #### P SASC #### [facility] [address] [place] [address] Dr. Helen Cifuentes VLDL CALC 8.6 mg/dL Normal [facility] Comment on above: Performed By: #### P SASC #### [facility] [address] [address] [address] Helen Cifuentes PROF 14(COMP METB)on 022 Albumin [Mass/Vol] 3.8 g/dL Normal 3.4-5.0 [facility] Comment on above: Performed By: #### P SASC #### [facility] [address] [place] [address] Dr. Helen Cifuentes Albumin/Globulin [Mass ratio] 1.1 {ratio} Normal [facility] Comment on above: Performed By: #### P SASC #### [facility] [address] [place] [address] Dr. Helen Cifuentes ALP [Catalytic activity/Vol] 71 U/L Normal 46-116 [facility] Comment on above: Performed By: #### P SASC #### [facility] [address] [place] [address] Dr. Helen Cifuentes ALT [Catalytic activity/Vol] 21 U/L Normal 16-63 [facility] Comment on above: Performed By: #### P SASC #### [facility] [address] [place] [address] Dr. Helen Cifuentes Anion gap [Moles/Vol] 13.0 mmol/L Normal [facility] Comment on above: Performed By: #### P SASC #### [facility] [address] [place] [address] Dr. Helen Cifuentes AST [Catalytic activity/Vol] 20 U/L Normal 15-37 [facility] Comment on above: Performed By: #### P SASC #### [facility] [address] [place] [address] Dr. Helen Cifuentes Bilirubin [Mass/Vol] 0.5 mg/dL Normal 0.2-1.0 [facility] Comment on above: Performed By: #### P SASC #### [facility] [address] [address] [address] Helen Cifuentes Calcium [Mass/Vol] 9.5 mg/dL Normal 8.5-10.1 [facility] Comment on above: Performed By: #### P SASC #### [facility] [address] [address] [address] Helen Cifuentes Chloride [Moles/Vol] 98 mmol/L Normal 98-107 [facility] Comment on above: Performed By: #### P SASC #### [facility] [address] [place] [address] Dr. Helen Cifuentes CO2 [Moles/Vol] 22.4 mmol/L Normal 21.0-32.0 [facility] Comment on above: Performed By: #### P SASC #### [facility] [address] [place] [address] Dr. Helen Cifuentes Creatinine [Mass/Vol] 0.84 mg/dL Normal 0.70-1.30 [facility] Comment on above: Performed By: #### P SASC #### [facility] [address] [place] [address] Dr. Helen Cifuentes EGFR-AF ZAMBIAN >60 Normal >=60 [facility] Comment on above: Performed By: #### P SASC #### [facility] [address] [place] [address] Dr. Helen Cifuentes EGFR-NON AF ZAMBIAN >60 Normal >=60 [facility] Comment on above: Performed By: #### P SASC #### [facility] [address] [place] [address] Dr. Helen Cifuentes Globulin (S) [Mass/Vol] 3.4 g/dL Normal [facility] Comment on above: Performed By: #### P SASC #### [facility] [address] [place] [address] Dr. Helen Cifuentes Glucose [Mass/Vol] 100 mg/dL Normal 74-106 [facility] Comment on above: Performed By: #### P SASC #### [facility] [address] [place] [address] Dr. Helen Cifuentes Potassium [Moles/Vol] 4.4 mmol/L Normal 3.5-5.1 [facility] Comment on above: Performed By: #### P SASC #### [facility] [address] [place] [address] Dr. Helen Cifuentes Protein [Mass/Vol] 7.2 g/dL Normal 6.4-8.2 [facility] Comment on above: Performed By: #### P SASC #### [facility] [address] [place] [address] Dr. Helen Cifuentes Sodium [Moles/Vol] 129 mmol/L Critically low 136-145 [facility] Comment on above: Performed By: #### P SASC #### [facility] [address] [place] [address] Dr. Helen Cifuentes Urea nitrogen [Mass/Vol] 10.0 mg/dL Normal 7.0-18.0 [facility] Comment on above: Performed By: #### P SASC #### [facility] [address] [place] [address] Dr. Helen Cifuentes Urea nitrogen/Creatinine [Mass ratio] 11.9 mg/mg Normal [facility] Comment on above: Performed By: #### P SASC #### [facility] [address] [place] [address] Dr. Helen Cifuentes CBC AUTO DIFFon 07-16-2021 BASO # 0.1 103/ul Normal 0.0-0.1 [facility] Comment on above: Performed By: #### C BC #### [facility] [address] [place] [address] Dr. Helen Cifuentes Basophils/100 WBC (Bld) 1.0 % Normal 0.2-2.0 [facility] Comment on above: Performed By: #### C BC #### [facility] [address] [place] [address] Dr. Helen Cifuentes EO # 0.2 103/ul Normal 0.0-0.7 [facility] Comment on above: Performed By: #### C BC #### [facility] [address] [place] [address] Dr. Helen Cifuentes Eosinophils/100 WBC (Bld) 2.0 % Normal 0.9-7.0 [facility] Comment on above: Performed By: #### C BC #### [facility] [address] [place] [address] Dr. Helen Cifuentes Erythrocyte distribution width (RBC) [Ratio] 12.9 % Normal 11.0-15.0 [facility] Comment on above: Performed By: #### C BC #### [facility] [address] [place] [address] Dr. Helen Cifuentes Hematocrit (Bld) [Volume fraction] 43.6 % Normal 42.0-54.0 [facility] Comment on above: Performed By: #### C BC #### [facility] [address] [place] [address] Dr. Helen Cifuentes Hemoglobin (Bld) [Mass/Vol] 14.5 g/dL Normal 14.0-18.0 [facility] Comment on above: Performed By: #### C BC #### [facility] [address] [place] [address] Dr. Helen Cifuentes IG # 0.19 10e3/ul Critically high 0.00-0.03 [facility] Comment on above: Performed By: #### C BC #### [facility] [address] [place] [address] Dr. Helen Cifuentes IG % 2.0 % Critically high 0.0-0.5 [facility] Comment on above: Performed By: #### C BC #### [facility] [address] [place] [address] Dr. Helen Cifuentes LYMPH # 1.6 103/ul Normal 1.2-3.8 [facility] Comment on above: Performed By: #### C BC #### [facility] [address] [place] [address] Dr. Helen Cifuentes Lymphocytes/100 WBC (Bld) 16.7 % Critically low 20.5-60.0 [facility] Comment on above: Performed By: #### C BC #### [facility] [address] [place] [address] Dr. Helen Cifuentes MANUAL DIFF REQ NO Normal [facility] Comment on above: Performed By: #### C BC #### [facility] [address] [place] [address] Dr. Helen Cifuentes MCH (RBC) [Entitic mass] 30.5 pg Normal 25.9-34.0 [facility] Comment on above: Performed By: #### C BC #### [facility] [address] [place] [address] Dr. Helen Cifuentes MCHC (RBC) [Mass/Vol] 33.3 g/dL Normal 29.9-35.2 [facility] Comment on above: Performed By: #### C BC #### [facility] [address] [place] [address] Dr. Helen Cifuetnes MCV (RBC) [Entitic vol] 91.6 fL Normal 80.0-94.0 [facility] Comment on above: Performed By: #### C BC #### [facility] [address] [place] [address] Dr. Helen Cifuentes MONO # 0.7 103/ul Normal 0.3-0.8 [facility] Comment on above: Performed By: #### C BC #### [facility] [address] [place] [address] Dr. Helen Cifuentes Monocytes/100 WBC (Bld) 7.2 % Normal 1.7-12.0 [facility] Comment on above: Performed By: #### C BC #### [facility] [address] [place] [address] Dr. Helen Cifuentes NEUT # 6.7 103/ul Critically high 1.4-6.5 [facility] Comment on above: Performed By: #### C BC #### [facility] [address] [place] [address] Dr. Helen Cifuentes Neutrophils/100 WBC (Bld) 71.1 % Normal 43.0-75.0 [facility] Comment on above: Performed By: #### C BC #### [facility] [address] [place] [address] Dr. Helen Cifuentes Platelet mean volume (Bld) [Entitic vol] 8.9 fL Critically low 9.5-13.5 [facility] Comment on above: Performed By: #### C BC #### [facility] [address] [place] [address] Dr. Helen Cifuentes PLT 286 103/ul Normal 150-450 [facility] Comment on above: Performed By: #### C BC #### [facility] [address] [place] [address] Dr. Helen Cifuentes RBC 4.76 106/ul Normal 4.70-6.10 [facility] Comment on above: Performed By: #### C BC #### [facility] [address] [place] [address] Dr. Helen Cifuentes WBC 9.4 103/ul Normal 4.0-11.0 [facility] Comment on above: Performed By: #### C BC #### [facility] [address] [place] [address] Dr. Helen Cifuentes FERRITINon 07-16-2021 Ferritin [Mass/Vol] 123.0 ng/mL Normal 17.9-464.0 [facility] Comment on above: Performed By: #### B 12FOL, FERR, FETIBC #### [facility] [address] [place] [address] Dr. Helen Cifuentes IRON AND TIBCon 07-16-2021 % SATURATION 16.2 % Normal [facility] Comment on above: Performed By: #### B 12FOL, FERR, FETIBC #### [facility] [facility] [address] [place] [address] Dr. Helen Cifuentes Iron [Mass/Vol] 53.0 ug/dL Normal 49.0-181.0 [facility] Comment on above: Performed By: #### B 12FOL, FERR, FETIBC #### [facility] [address] [place] [address] Dr. Helen Cifuentes TIBC DIRECT 327.0 ug/dL Normal 261.0-497.0 [facility] Comment on above: Performed By: #### B 12FOL, FERR, FETIBC #### [facility] [address] [place], [place] [address] Dr. Helen Cifuentes VIT B12 AND FOLATEon 021 Cobalamin (Vitamin B12) [Mass/Vol] 441.0 pg/mL Normal 239.0-931.0 [facility] Comment on above: Performed By: #### B 12FOL, FERR, FETIBC #### [facility] [address] [place], [place] [address] Dr. Helen Cifuentes FOLATE >20.00 Normal >=2.76 [facility] Comment on above: Performed By: #### B 12FOL, FERR, FETIBC #### [facility] [address] [place] [address] [address] Helen Cifuentes Vital Signs Date Time Vital Sign Value Performing Clinician Facility 09-18-2024 11:37-0500 Body height 172.72 cm [facility] 09-18-2024 11:37-0500 Body mass index (BMI) [Ratio] 29.8 kg/m2 [facility] 09-18-2024 11:37-0500 Body weight 89.01 kg [facility] 09-18-2024 11:37-0500 Diastolic blood pressure 89 mm[Hg] [facility] 09-18-2024 11:37-0500 Heart rate 85 /min [facility] 09-18-2024 11:37-0500 Respiratory rate 12 /min [facility] 09-18-2024 11:37-0500 Systolic blood pressure 139 mm[Hg] [facility] 08-08-2024 09:57-0500 Body height 172.72 cm [facility] 08-08-2024 09:57-0500 Body mass index (BMI) [Ratio] 29.7 kg/m2 [facility] 08-08-2024 09:57-0500 Body weight 88.9 kg [facility] 08-08-2024 09:57-0500 Diastolic blood pressure 93 mm[Hg] [facility] 08-08-2024 09:57-0500 Heart rate 89 /min [facility] 08-08-2024 09:57-0500 Respiratory rate 12 /min [facility] 08-08-2024 09:57-0500 Systolic blood pressure 166 mm[Hg] [facility] 03-23-2024 10:49-0400 Body height 172.7 cm Bobbi GRANADOS Work Phone: [facility] 03-23-2024 10:49-0400 Body mass index (BMI) [Ratio] 28.74 kg/m2 Bobbi GRANADOS Work Phone: [facility] 03-23-2024 10:49-0400 Body weight 85.73 kg Bobbi GRANADOS Work Phone: [facility] 03-15-2024 14:12-0400 Body height 172.72 cm [facility] 03-15-2024 14:12-0400 Body mass index (BMI) [Ratio] 29.2 kg/m2 [facility] 03-15-2024 14:12-0400 Body weight 87.25 kg [facility] 03-15-2024 14:12-0400 Diastolic blood pressure 79 mm[Hg] [facility] 03-15-2024 14:12-0400 Heart rate 90 /min [facility] 03-15-2024 14:12-0400 Respiratory rate 12 /min [facility] 03-15-2024 14:12-0400 Systolic blood pressure 131 mm[Hg] [facility] 03-02-2024 08:41-0400 Body height 172.7 cm [facility] 03-02-2024 08:41-0400 Body mass index (BMI) [Ratio] 29.8 kg/m2 [facility] 03-02-2024 08:41-0400 Body temperature 97.5 [degF] [facility] 06-27-2024 08:41-0400 Body weight 88.9 kg [facility] 03-02-2024 08:41-0400 Diastolic blood pressure 90 mm[Hg] [facility] 03-02-2024 08:41-0400 Heart rate 77 /min [facility] 03-02-2024 08:41-0400 Respiratory rate 16 /min [facility] 03-02-2024 08:41-0400 SaO2% (BldA) [Mass fraction] 97 % [facility] 03-02-2024 08:41-0400 Systolic blood pressure 160 mm[Hg] [facility] 02-02-2024 14:25-0400 Body height 172.7 cm Kip Nieves MD Work Phone: [facility] 02-02-2024 14:25-0400 Body mass index (BMI) [Ratio] 29.5 kg/m2 Kip Nieves MD Work Phone: [facility] 02-02-2024 14:25-0400 Body weight 88 kg Kip Nieves MD Work Phone: [facility] 02-01-2024 09:12-0400 Body height 172.72 cm [facility] 02-01-2024 09:12-0400 Body mass index (BMI) [Ratio] 29.5 kg/m2 [facility] 02-01-2024 09:12-0400 Body weight 88.05 kg [facility] 02-01-2024 09:12-0400 Diastolic blood pressure 80 mm[Hg] [facility] 02-01-2024 09:12-0400 Heart rate 76 /min [facility] 02-01-2024 09:12-0400 Respiratory rate 12 /min [facility] 02-01-2024 09:12-0400 Systolic blood pressure 135 mm[Hg] [facility] 01-04-2024 08:58-0400 Body height 172.7 cm Dorcas PHILLIPS Work Phone: [facility] 01-04-2024 08:58-0400 Body mass index (BMI) [Ratio] 29.92 kg/m2 Dorcas Liu [employer] Work Phone: [facility] 01-04-2024 08:58-0400 Body weight 89.27 kg Dorcas Liu [employer] Work Phone: [facility] 01-04-2024 08:58-0400 Diastolic blood pressure 84 mm[Hg] Dorcas Liu [employer] Work Phone: [facility] 01-04-2024 08:58-0400 Heart rate 82 /min Dorcas Liu [employer] Work Phone: [facility] 01-04-2024 08:58-0400 Systolic blood pressure 133 mm[Hg] Dorcas Liu [employer] Work Phone: [facility] 08-03-2023 09:00-0500 Body height 172.72 cm Daren Ball Other [facility] Other 08-03-2023 09:00-0500 Body mass index (BMI) [Ratio] 29.49 kg/m2 Daren Ball Other [facility] Other 08-03-2023 09:00-0500 Body weight 88 kg Daren Ball Other [facility] Other 08-03-2023 09:00-0500 Diastolic blood pressure 86 mm[Hg] Daren Ball Other [facility] Other 08-03-2023 09:00-0500 Respiratory rate 12 /min Daren Ball Other [facility] Other 08-03-2023 09:00-0500 Systolic blood pressure 138 mm[Hg] Daren Ball Other [facility] Other 02-02-2023 09:30-0400 Body height 172.72 cm Daren [employer] Other [facility] Other 02-02-2023 09:30-0400 Body mass index (BMI) [Ratio] 27.55 kg/m2 Daren Ball Other [facility] Other 02-02-2023 09:30-0400 Body weight 82.19 kg Daren [employer] Other [facility] Other 02-02-2023 09:30-0400 Diastolic blood pressure 80 mm[Hg] Daren [employer] Other [facility] Other 02-02-2023 09:30-0400 Respiratory rate 12 /min Daren [employer] Other [facility] Other 02-02-2023 09:30-0400 Systolic blood pressure 159 mm[Hg] Daren [employer] Other [facility] Other Encounters Encounter Date Encounter Type Care Provider Facility Start: 09-18-2024 End: 09-18-2024 ambulatory [facility] Work Phone: Start: 09-18-2024 End: 09-18-2024 Patient encounter procedure [facility] Work Phone: Start: 08-31-2024 End: 08-31-2024 ambulatory [facility] Start: 08-08-2024 End: 08-08-2024 Patient encounter procedure [facility] Work Phone: Start: 08-01-2024 Non-patient / Non-visit [facility] Work Phone: Start: 03-23-2024 End: 03-23-2024 Office outpatient visit 15 minutes Bobbi GRANADOS Work Phone: [facility] Comment on above: Incisional hernia, w ithout obstruction or gangrene (Primary Dx) Start: 03-23-2024 End: 03-23-2024 [facility] Start: 03-15-2024 End: 03-15-2024 ambulatory [facility] Work Phone: Start: 03-15-2024 End: 03-15-2024 Patient encounter procedure [facility] Physician [facility] Work Phone: Start: 03-06-2024 End: 03-06-2024 Evaluation and management of inpatient [facility] Start: 03-06-2024 End: 03-06-2024 Evaluation and management of inpatient [facility] Start: 03-02-2024 End: 03-02-2024 Patient encounter [facility] Comment on above: Preop testing (Prima ry Dx) Start: 03-02-2024 End: 03-02-2024 Patient encounter status [facility] Start: 03-02-2024 End: 03-02-[address] [facility] Start: 03-02-2024 Encounter for other preprocedural examination [facility] Start: 02-02-2024 End: 02-02-2024 Office outpatient new 45 minutes Kip Nieves MD Work Phone: [facility] Comment on above: Supraumbilical herni a Start: 02-02-2024 End: 02-02-[address] [facility] Start: 02-01-2024 End: 02-01-2024 ambulatory [facility] Work Phone: Start: 02-01-2024 End: 02-01-2024 Encounter for general adult medical examination without abnormal findings [facility] Start: 02-01-2024 End: 02-01-2024 Patient encounter procedure [facility]ly [facility] Physician [facility] Work Phone: Start: 01-27-2024 End: 01-28-2024 Evaluation and management of inpatient SISSY Hernandez [facility] Start: 01-04-2024 End: 01-04-2024 Office outpatient visit 15 minutes Sissy Love MD Work Phone: [facility] Comment on above: Supraumbilical herni a (Primary Dx) Start: 01-04-2024 End: 01-04-2024 ambulatory [facility] Start: 12-27-2023 End: 12-27-2023 [facility] Start: 12-13-2023 End: 12-13-2023 ambulatory SISSY Hernandez [facility] Start: 11-09-2023 End: 11-09-2023 ambulatory [facility] Start: 10-18-2023 End: 10-18-2023 ambulatory Daren Aldridge Other [facility] Other Start: 10-18-2023 Telephone encounter Daren Aldridge [facility] Start: 09-28-2023 End: 09-28-2023 ambulatory [facility] Start: 08-03-2023 End: 08-03-2023 ambulatory Daren Aldridge Other [facility] Other Start: 08-03-2023 Office outpatient vi sit 25 minutes Daren Aldridge [facility] Start: 03-17-2023 End: 03-17-2023 ambulatory Daren Aldridge Other [facility] Other Start: 03-17-2023 Telephone encounter Daren Aldridge K[facility]RON [facility] Start: 02-02-2023 End: 02-02-2023 ambulatory Daren Aldridge Other [facility] Other Start: 02-02-2023 Encounter for genera l adult medical examination without abnormal findings Daren Aldridge [facility] Start: 02-02-2023 Periodic preventive med est patient 40-64yrs Daren Aldridge [facility] Start: 11-03-2022 End: 11-03-2022 ambulatory Daren Aldridge Other [employer] Other Start: 11-03-2022 Office outpatient vi sit 15 minutes Daren Aldridge [facility] Start: 02-21-2022 End: 02-22-[address] DAREN ALDRIDGE Facility:[facility] Start: 02-06-2022 Encounter for genera l adult medical examination without abnormal findings DR DAREN ALDRIDGE [facility] Start: 01-31-2022 End: 02-01-[address] DAREN ALDRIDGE Facility:[facility] Start: 01-31-2022 End: 02-01-2022 Encounter for general adult medical examination without abnormal findings DR DAREN ALDRIDGE Facility:[facility] Start: 07-16-2021 End: 07-17-[address] DAREN ALDRIDGE Facility:[facility] Procedures Date Procedure Procedure Detail Performing Clinician Start: 01-27-2024 Colonoscopy Kip wetzel MD Work Phone: Start: 11-09-2023 Follow-up visit Follow-up SAURABH CRESPO Start: 01-31-[address] REBOLLAR [facility] [place] Comment on above: Performed By: #### P [facility] #### [facility] [address] [place] [address] Dr. Helen Cifuentes Start: 08-27-2017 Colonoscopy Dorcas simons [employer] Work Phone: Plan of Treatment Date Care Activity Detail Author Start: 01-26-2034 Screening for malign ant neoplasm of colon Colonoscopy [facility] Start: 05-18-2030 DTaP,Tdap and Td Vaccines (2 - Td or Tdap) DTaP,Tdap and Td Vaccines (2 - Td or Tdap) [facility] Start: 05-18-2030 DTaP,Tdap and Td Vaccines (6 - Td or Tdap) DTaP,Tdap and Td Vaccines (6 - Td or Tdap) [facility] Start: 08-27-2027 Screening for malign ant neoplasm of colon Colonoscopy [facility] Start: 07-05-2025 Tobacco Counseling Tobacco Counseljen garcia [facility] Start: 03-23-2025 Adult BMI Screening Adult BMI Screen ing [facility] Start: 03-23-2025 Tobacco Screening Tobacco Screening [facility] Start: 03-02-2025 Adult BMI Screening Adult BMI Screen ing [facility] Start: 03-02-2025 Tobacco Screening Tobacco Screening [facility] Start: 02-01-2025 Adult BMI Screening Adult BMI Screen ing [facility] Start: 02-01-2025 Tobacco Screening Tobacco Screening [facility] Start: 01-03-2025 Adult BMI Screening Adult BMI Screen ing [facility] Start: 01-03-2025 Tobacco Screening Tobacco Screening [facility] Start: 05-07-2024 Influenza vaccination Influenza Vacc ine [facility] Start: 03-13-2024 End: 03-13-2024 Admission to same day surgery center 03/13/2024 2:30 PM EDT - 03/13/2024 3:45 PM EDT Surgery [facility] Surgery [address] [place] [address] Kip Nieves MD [address] [place] [address] REPAIR HERNIA INCISIONAL/NO MESH [facility] Surgery Comment on above: REPAIR HERNIA INCISI ONAL/NO MESH Start: 03-13-2024 End: 03-13-2024 REPAIR HERNIA INCISIONAL REPAIR HERNIA INCISIONAL INCISIONAL HERNIA SIMPLE 03/13/2024 2:30 PM EDT [facility] Start: 03-13-2024 Subsequent hospital visit by physician 03/13/2024 2:30 PM EDT Hospital Encounter [facility] Surgery [address] [place] [address] Kip Nieves MD [address] [place] [address] [facility] - Surgery Start: 03-06-2024 End: 03-06-2024 Admission to same day surgery center 03/06/2024 9:00 AM EDT - 03/06/2024 10:15 AM EDT Surgery [facility] Surgery [address] [place] [address] Kip Nieves MD [address] [place] [address] REPAIR HERNIA INCISIONAL/NO MESH [facility] Surgery Comment on above: REPAIR HERNIA INCISI ONAL/NO MESH Start: 03-06-2024 End: 03-06-2024 REPAIR HERNIA INCISIONAL REPAIR HERNIA INCISIONAL INCISIONAL HERNIA SIMPLE 03/06/2024 9:00 AM EDT [facility] Start: 03-06-2024 Subsequent hospital visit by physician 03/06/2024 9:00 AM EDT Hospital Encounter [facility] Surgery [address] [place] [address] Kip Nievse MD [address] [place] [address] [facility] Start: 02-28-2024 End: 02-28-2024 Patient encounter procedure 02/28/2024 11:00 AM EDT Procedure visit [facility] [address] [address] [facility] Start: 02-02-2024 End: 02-02-2024 Patient encounter procedure 02/02/2024 2:30 PM EDT Office Visit [facility] [address] [place] [address] Kip Nieves MD [address] [place] [address] [facility] Start: 01-27-2024 End: 01-27-2024 Admission to same day surgery center 01/27/2024 8:30 AM EDT - 01/27/2024 9:00 AM EDT Surgery [facility] Surgery [address] [place] [address] [facility] [address] [place] [phone] Sissy Love MD [address] [place] [address], [address] [place] [address] COLONOSCOPY DIAGNOSTIC [66311 (CPT )] [facility] Comment on above: COLONOSCOPY DIAGNOST IC [36829 (CPT )] Start: 01-27-2024 End: 01-27-2024 Colonoscopy flx dx w/collj spec when pfrmd COLONOSCOPY DIAGNOSTIC / SCREENING Change in bowel habits 01/27/2024 8:30 AM EDT [facility] Start: 01-27-2024 Subsequent hospital visit by physician 01/27/2024 8:30 AM EDT Hospital Encounter [facility] Surgery [address] [address] [place] [address] Sissy Love MD [address] [place] [address], [address] [place] [address] [facility] Start: 10-09-2023 COVID-19 Vaccine ( season) COVID-19 Vaccine ( season) [facility] Start: 2023 Fall Risk Screening Fall Risk Screen ing [facility] Start: 02-21-1976 Adult BMI Follow Up Plan Adult BMI Follow Up Plan [facility] Start: 1970 Depression Screening Depression Scre ening [facility] [employer] Start: 1960 Medicare Annual Well ness Visit Medicare Annual Wellness Visit [facility] Comprehensive metabo lic 2000 panel - Serum or Plasma [facility] Immunizations Immunization Date Immunization Notes Care Provider Tahmina de león 08-03-2023 Prevnar 20 Daren Aldridge Other [facility] 06-08-2023 influenza virus vaccine, unspecified formulation Dorcas Liu [employer] Work Phone: [facility] 06-03-2022 COVID-19 Pfizer (bivalent) Daren Aldridge Other [facility] 06-03-2022 COVID-19 Vaccine Pfi zer - Documentation Purposes Only Daren Aldridge Other [facility] 05-10-2022 influenza virus vaccine, split virus (incl. purified surface antigen) Daren Aldridge Other [facility] [employer] Other 05-10-2022 influenza virus vaccine, unspecified formulation [facility] 05-10-2022 influenza, injectabl e, quadrivalent, preservative free Daren Aldridge Other [facility] 12-28-2021 COVID-19 Vaccine Moderna - Documentation Purposes Only Daren Aldridge Other [facility] 08-09-2021 COVID-19 Vaccine Moderna - Documentation Purposes Only Daren Aldridge Other [facility] 05-10-2021 influenza virus vaccine, split virus (incl. purified surface antigen) Daren Aldridge Other [facility] [employer] Other 05-10-2021 influenza virus vaccine, unspecified formulation [facility] 12-11-2020 COVID-19 Vaccine Moderna - Documentation Purposes Only Daren Aldridge Other [facility] 11-13-2020 COVID-19 Vaccine Moderna - Documentation Purposes Only Daren Aldridge Other [facility] 05-18-2020 diphtheria, tetanus toxoids and acellular pertussis vaccine, unspecified formulation Daren Aldridge Other [facility] 05-18-2020 tetanus and diphther ia toxoids, adsorbed, preservative free, for adult use (5 Lf of tetanus toxoid and 2 Lf of diphtheria toxoid) [facility] 05-18-2020 tetanus toxoid, redu ellyn diphtheria toxoid, and acellular pertussis vaccine, adsorbed Daren Aldridge Other [facility] [employer] Other 06-19-2017 tetanus and diphther ia toxoids, adsorbed, preservative free, for adult use (5 Lf of tetanus toxoid and 2 Lf of diphtheria toxoid) Daren Aldridge Other [facility] 06-21-2016 influenza virus vaccine, split virus (incl. purified surface antigen) Daren Aldridge Other [facility] Other 06-21-2016 influenza virus vaccine, unspecified formulation [facility] 07-30-2015 influenza virus vaccine, split virus (incl. purified surface antigen) Daren Aldridge Other [facility] Other 07-30-2015 influenza virus vaccine, unspecified formulation [facility] 07-10-2014 influenza virus vaccine, split virus (incl. purified surface antigen) Daren Aldridge Other [facility] Other 07-10-2014 influenza virus vaccine, unspecified formulation [facility] 07-06-2013 tetanus and diphther ia toxoids, adsorbed, preservative free, for adult use (5 Lf of tetanus toxoid and 2 Lf of diphtheria toxoid) Daren Aldridge Other [facility] Payers Date Payer Category Payer Unknown ADILIA GARCIA SS (PPO) [id number] 2023-Present [phone] [address] [place] [address] [id number] 2023 Medicare MEDICARE MEDICAR E PART A & B [id number] 2023-Present [phone] [address] [place] [address] [id number] 2023 Medicare [id number] 1959 Unknown [id number] 1959 Unknown [id number] 1958 Unknown [id number] 1958 Unknown [id number] [id number] 1958 Unknown [id number] [id number] 1958 Unknown [id number] [id number] 6 1958 Unknown [id number] [id number] 6 1958 Unknown [id number] [id number] 6 1958 Unknown [id number] 2.16.840.1.266197.3.579.2.128 6 1958 Unknown [id number] 2.16.840.1.533894.3.579.2.128 6 1958 Unknown [id number] 2.16.840.1.363495.3.579.2.128 6 1958 Unknown [id number] 2.16.840.1.147363.3.579.2.128 6 1958 Unknown [id number] 2.16.840.1.854827.3.579.2.128 6 1958 Unknown [id number] [id number] 6 1958 Unknown [id number] [id number] 6 1958 Unknown [id number] [id number] 6 1958 Unknown [id number] [id number] 6 Unknown [facility] PFFS [id number] Social History Date Type Detail Facility Start: 10-16-2020 End: 01-04-2024 Sex Assigned At [facility] Other Start: 1960 Sex Assigned At Male [facility] Tobacco smoking stat us WVIS Unknown if ever smoked [facility] Work Phone: Start: 09-18-2024 Sex Male (finding) [facility] Start: 09-06-1976 End: 03-02-2024 Tobacco smoking status NHIS Smokes tobacco daily [facility] Start: 09-06-1976 History of tobacco use Cigarette Smoker [facility] Start: 01-04-2024 End: 03-02-2024 Tobacco use and exposure Smokeless tobacco non-user [facility] Start: 01-04-2024 End: 03-23-2024 Alcoholic beverage intake Current non-drinker of alcohol (finding) [facility] Start: 10-16-2020 End: 01-04-2024 History of Social function [facility] Childcare Unknown [facility] Start: 12-14-2023 Gender identity Identifies as male gender (finding) [facility] Start: 12-14-2023 Sexual orientation Heterosexual (finding) [facility] Start: 03-02-2024 Tobacco Comment Down to 1/[address] [facility] Start: 03-02-[address] [facility] Clinical Notes 11-03-2022 to 08-31-2024 Note Date & Type Note Facility 08-31-2024 Note Orthopedic Surgery Subjective Chief complaint: Chief Complaint Patient presents with Left Hand - Follow-up Right Hand - Follow-up 08/31/24 Hay returns to clinic today for continued evaluation of bilateral hand pain. He has a history of bilateral carpal tunnel syndrome as well as a right long trigger finger. He has previously received a CSI to the left carpal tunnel earlier in the year, which provided about 4 months of relief. Since then, he has had worsening numbness and tingling in the thumb, index, and long fingers. Symptoms are similar bilaterally. Symptoms do improve with night splints. He has also noticed worsening pain and stiffness of the right long finger. He has been stretching this regularly but states the finger often becomes bent. He has difficulty making a full fist with this hand. Overall, he states the carpal tunnel symptoms are tolerable, but he would like the trigger finger injected today. 11/09/23 Heri Rao is a 64 y.o. year old male presenting for evaluation of his left carpal tunnel symptoms. Last time he was here we did a corticosteroid injection into the left carpal tunnel. He states that that is helped significantly and he feels much better. He does have some complains of some discomfort in the right thumb and occasional tenderness in the right long finger. Previous Treatments: Corticosteroid injection for carpal tunnel, stretching History No past surgical history on file. Past Medical History: Diagnosis Date Arthritis 05/2007 Cancer ([facility]) Skin cancer 2005 CTS (carpal tunnel syndrome) Hypertension 01/2019 Trigger finger 01/2020 Objective General: Body mass index is 29.5 kg/m???. No acute distress, comfortable Respiratory: Unlabored breathing with normal rate, no cough Cardiovascular: Warm well perfused extremities Psych: Appropriate mood behavior Right Hand: Inspection: No obvious deformity. Skin intact with no ecchymosis, erythema, or swelling. Tender to palpation over long finger A1 xi Nontender to palpation over remainder of hand Thumb: normal A1 xi and AROM, Index finger: normal A1 xi and AROM, Long finger: TTP over A1 xi, + triggering, Ring finger: normal A1 xi and AROM, and Small finger: normal A1 xi and AROM Strength: Stove Mounter 5/5, thumb 5/5, interossei 5/5 Sensation: Intact over median, ulnar, and radial nerve distributions Motor: Intact in AIN, PIN, and ulnar nerves Tinel (+) at carpal tunnel Carpal compression test (+) Cardiovascular: Well-perfused digits, radial pulse 2+ with BCR x5 Left Hand: Inspection: No obvious deformity. Skin intact with no ecchymosis, erythema, or swelling. Nontender to palpation throughout hand Thumb: normal A1 xi and AROM, Index finger: normal A1 xi and AROM, Long finger: normal A1 xi and AROM, Ring finger: normal A1 xi and AROM, and Small finger: normal A1 xi and AROM Strength: Stove Mounter 5/5, thumb 5/5, interossei 5/5 Sensation: Intact over median, ulnar, and radial nerve distributions Motor: Intact in AIN, PIN, and ulnar nerves Tinel (+) at carpal tunnel Carpal compression test (+) Cardiovascular: Well-perfused digits, radial pulse 2+ with BCR x5 Imaging: No new imaging obtained today Assessment/Plan Heri Rao is a 64 y.o. year old male with Bilateral carpal tunnel syndrome Trigger finger, acquired PLAN: - Clinical findings discussed with the patient. He has bilateral carpal tunnel syndrome as well as a right long finger trigger digit. Regarding his carpal tunnel, he feels that his symptoms are tolerable, and he is doing OK with night splints. We will plan to continue these for now. - For his right long trigger finger, treatment options were discussed, including continued stretching, injection, or surgical release. He would like to proceed with an injection today. Please see procedure note for details. - Patient is considering undergoing carpal tunnel release sometime early next year (November or December). He will contact the office when he is ready to schedule. - Follow up in clinic as needed. Kylie Kumari MD Orthopaedic Surgery Resident, PGY-4 08/31/24 By using the attestations below, the signing clinician agrees that I have read and verify that the documentation has been personally reviewed by me and ensure that the documentation accurately reflects the encounter. Office Visit Attestation GC: I personally saw this patient on the day of the encounter, performed the alva portion(s) of the service and participated in the management and confirm the resident's documentation. Please note there may be an additional personal documentation from me. [facility] 08-31-2024 Note Patient ID: Heri Rao is a 64 y.o. male. Steroid Injections for trigger finger on 08/31/2024 8:38 AM Details: 25 G needle, volar approach Medications: 1 mL lidocaine HCl 10 mg/mL (1 %); 40 mg triamcinolone acetonide (Kenalog-40) 40 mg/mL Outcome: tolerated well, no immediate complications After discussing the treatment options, and the risks and benefits of a corticosteroid injection, verbal consent to proceed was obtained. The right middle finger trigger digit was injected in the clinic today. The area was prepped with Betadine. A combination of 1 mL each of 1 percent lidocaine and Kenalog 40 mg/mL was injected into the flexor sheath using a 25-gauge needle. The area was wiped clean with an alcohol swab, and dressed with a Band-Aid. Instructions were given to either ice the area for about 10 minutes later today or use anti-inflammatories for discomfort. We also instructed that the finger would likely be numb for a couple of hours and to be careful until the sensation returned. Procedure, treatment alternatives, risks and benefits explained, specific risks discussed. Consent was given by the patient. Immediately prior to procedure a time out was called to verify the correct patient, procedure, equipment, aviation support equipment repairer and site/side marked as required. Procedure Attestation Level of Attending Supervision for Procedure I was present for the alva and critical portions and I was otherwise immediately available to assist [facility] 08-08-2024 Evaluation note Diagnosis Onset Date Resolution Cigarette nicotine dependence acute August 08 9:50am Essential hypertension acute 2023 9:50am Inflammatory polyarthropathy acute August 08 9:50am Trigger finger, right middle finger acute August 08 9:50am Cigarette nicotine dependence acute September 18 11:28am Essential hypertension acute [facility] 2024 11:28am [facility] Work Phone: [phone] 232-312607-18-2024 History of Present illness Narrative* DARWIN Bo - 03/23/2024 10:30 AM EDT Images from the original note were not included. Subjective: Heri Rao is a 64 y.o. male presents today for his first post operative visit s/p primary repair of incarcerated incisional hernia on 03/07/2024. States he is doing well since the surgery. He did take the 2 days with the narcotic pain medication. He is then transition to just Tylenol. Not required any Tylenol for the past 2 days. No nausea or vomiting. He has tolerating a regular diet. He is moving his bowels without difficulty. Voiding without difficulty. There were no vitals filed for this visit. Physical Exam Constitutional: General: He is not in acute distress. Appearance: He is not toxic-appearing. HENT: Head: Normocephalic and atraumatic. Eyes: General: No scleral icterus. Pulmonary: Effort: Pulmonary effort is normal. No respiratory distress. Abdominal: General: There is no distension. Palpations: Abdomen is soft. Tenderness: There is no abdominal tenderness. Comments: There is a small incision just superiorly to the umbilicus. It is healing well. There is no evidence of seroma or hematoma. No erythema. No drainage Skin: General: Skin is warm and dry. Neurological: Mental Status: He is alert and oriented to person, place, and time. Assessment: Heri Rao is a 64 y.o.male s/p primary repair of incarcerated incisional hernia. Plan: - he may slowly start to increase his activity as he tolerates - I did recommend using Tylenol and or ibuprofen as needed for any discomfort - Diet as tolerates - All questions and concerns were answered. - Follow up as needed, Call if any additional questions or concerns. Bobbi Rizo PA-C [facility] General Surgery [address] [place] [address] - DARWIN BO 03/23/24 7:23 AM DARWIN Bo 03/23/24 [id number] documented in [facility] Instructions* Patient Instructions* Ericka Soliz RN - 03/02/2024 8:30 AM EDT Your surgery/procedure is scheduled at [facility] on 03/06/24 at 9:00am Arrival Time 7:[facility]am [facility] Address: [address] [place] [address], [facility], [address] Park in the Emergency Center Parking lot. Report to the front end assistant in the Emergency/Surgery Registration lobby of the hospital. Please call Pre-Admission Clinic at [phone] if you have any questions prior to surgery. For questions the morning of surgery, please call the Pre-op Department at [phone]. Notify your SURGEON if you develop any illness such as a cold, cough, fever, sore throat, vomiting or are hospitalized between now and your surgery. CONTINUE TO TAKE YOUR MEDICATIONS PRESCRIBED. DO NOT STOP YOUR PRESCRIBED MEDICATIONS UNLESS DIRECTED BY YOUR PRESCRIBING PHYSICIAN Take the following medications the morning of surgery with a sip of water: Benazepril Weight loss medications: none Take inhalers as prescribed the morning of surgery. . Blood thinners: Medications such as Coumadin, Heparin, Aspirin, Plavix, Eliquis, Pradaxa) Please contact your physician regarding a stop/hold date for these medications. Continue to hold aspirin Diabetics: If you take insulin, contact your prescribing doctor for instructions on how to manage this the night before and the morning of surgery. Non-steriodal Anti-Inflammatory Drugs (NSAIDS)- Stop 3 days prior to surgery unless otherwise directed by your surgeon. Vitamins/Herbal Products: You may continue to take your prescribed vitamins such as potassium, iron, vitamin B, vitamin C, or multivitamin unless specifically instructed by your surgeon to stop. STOPtaking all herbal products/teas one week prior to your surgery. Marijuana: Stop marijuana 72 hours prior to surgery, stop CBD oil 48 hours prior to surgery. If you have been given bowel prep instructions by your surgeon, please call the surgeon's office with any questions about these instructions. What do I do the day of Surgery? Age 2 through adult - Stop all solids by midnight, You may have clear liquids up to 2 hours before surgery, unless otherwise instructed by your surgeon Clear liquids are: water, sports drinks such as Gatorade or G2, or apple juice. You may NOT have: tube feedings, dairy products, alcoholic beverages, orange juice, or any liquids with solids or pulp in it If applicable, shower again with CHG soap the morning of your surgery. If you received a green plastic bracelet, bring it with you the day of surgery and your nurse will put it on you. What do I need to do to prepare for surgery? If you will be going home the same day as your surgery, arrange for an adult over [address] Riding in a bus or taxi by yourself is not permitted. You should not smoke or drink alcohol 24 hours before your surgery. Smoking increases the risk of breathing problems after surgery. Alcohol thins the blood and may cause bleeding problems during surgery If you have been assigned SANDY Education by your surgeon's office, please complete this education prior to your surgery. For questions regarding SANDY education, reach out to your surgeons office. If you have been given a prescription for occupational, physical or speech therapy, please set up these appointments before your procedure. If you would like to schedule therapy at a [facility] facility, please call [phone] ([phone]). Do not use lotions, creams, powders, perfume, make up, cologne or after-shaves day of surgery. Remove ALL jewelry including wedding rings, body piercings, hair extensions that contain metal, nail kazakh, make-up, and contact lens. You may brush your teeth the morning of surgery, but do not swallow the water. Wear your dentures and partial plates to the hospital (no adhesive). Shower the night the before. If applicable, use the CHG (chlorhexidine gluconate) soap or wipes. Please be advised, [facility] has transitioned to a cashless payment system. What should I bring to the hospital? If you received a green plastic bracelet, bring it with you the day of surgery and your nurse will put it on you. Eyeglass or contact lens case If you will be spending the night, please bring personal care items and leave them in the car untilyou are taken to your room after surgery. Leave ALL valuables at home. If any of these instructions conflict with those you recieved from the surgeon, please seek clarification from your surgeon's office. DEEP BREATHING EXERCISES This exercise helps promote good air exchange and helps to prevent pneumonia after surgery. Breathe in slowly and deeply through the nose. Hold your breath for a few seconds and then exhale slowly through the mouth. Repeat this three times and then cough. Coughing helps to clear your lungs. If you have had a surgery with an incision into your abdomen or chest, press gently against your incision with a pillow or a folded blanket when you cough. Please be aware - it may not be fuller to cough following some types of surgeries involving the eyes,ears, sinuses and throat. Always follow your doctor's instructions. LEG EXERCISES These exercises help promote good circulation and help to prevent blood clots after surgery. Point your toes to the ceiling and then point them to the wall. Do this slowly about 15-20 times. You may also move your feet in circles. Do the exercise that is most comfortable for you. If you have had surgery involving your shoulder or arm, we recommend you move your fingers. PRACTICING We ask that you begin practicing these exercises before your surgery. After surgery try to do both exercises at least every 2 hours during the day and early evening. SURGICAL SITE INFECTION AND PREVENTION What is a Surgical Site Infection? Infection can happen to the area of the body where surgery is done. This is called a surgical site infection (SSI). A SSI does not happen very often. Can SSIs be treated? Antibiotics are used to treat SSI. Some patients may need another surgery to treat the infection. The doctor will discuss treatment options with you. What are some of the things that hospitals are doing to prevent SSIs? Soap and water or alcohol hand rub are used before and after caring for each patient.Special soap is used to clean surgery workers hands and arms just before the surgery. Masks, gowns, gloves and hair covers are worn during the surgery to keep the area clean. Hair in the surgery area may be removed with clippers (not razors). A special soap that kills germs is used to clean the skin at the surgery site. Antibiotics may be given before the surgery starts. What can you do to prevent SSIs? Before surgery: You may be asked to shower or bathe with a special soap that kills germs the night before and the day of surgery. Use the soap as you were told. If you smoke, stop or cut down. Ask your doctor about ways to quit. Do not shave near where you will have surgery. Shaving can irritate the skin and make it easier to get and infection. After surgery: Be sure that the doctors and nurses clean their hands before and after touching you. Be sure your family and friends clean their hands before and after visiting you. Do not be afraid to remind them. * Care for your wound at home as told by your doctor or nurse * Call your doctor right away if you have fever, redness, increased pain, or drainage at the surgery site. Further questions? Contact the doctor, nurse or the Infection Prevention and Control department if you have any questions. PATIENT RIGHTS AND RESPONSIBILITIES As a patient at [facility], you have the right to: Receive medical care and be informed of who is taking care of you Be treated with dignity and respect Have a family member/charter representative of choice and your physician notified of your admission Receive information and actively participate in decisions about your care and treatment Refuse care, treatment and services Decide who may provide your support and speak for you Access latter day and spiritual services Participate in ethical issues and questions about your care Receive private and confidential care Have appropriate assessment and management of your pain Know guest visitation restrictions or limitations Have an advance directive Access protective services Consent or refuse to participate in research studies or production or recordings, films or other images Have resolution of your complaints Receive information of hospital charges and payment methods Patient/patient charter representative responsibilities are to: Provide information about health status to facilitate care, treatment and services Follow the treatment, plan, keep appointments and speak up when you do not understand the plan Respect the rights of other patients and healthcare personnel Follow organizational rules and regulations that support quality care and a safe environment Fulfill financial obligations as promptly as possible Bathing Before Surgery- Patients greater than 2 months of age You can help to lower your chance of infection at the site of your surgery by showering or bathing with a special soap called chlorhexidine gluconate (CHG). Germs live on your skin. This special soapwill help lower the amount of germs so they do not get into your surgery site. Special points to know: Do not use this soap if you know that you are allergic to CHG. Shower or bathe with CHG the night before and the morning of surgery. Do not shave the area of your body where the surgery will be done within 7 days of surgery. The CHG may make your skin a little dry, but do not use lotion. Steps for Bathing: Wash your hair as usual with your normal shampoo. Rinse your hair and body well after you shampoo to get rid all of the shampoo. Wash gently with the CHG from the neck down, but do not scrub the skin to hard. Be sure to wash thearea of your surgery very well. If showering, turn the water off while washing and then turn the water back onto rinse. Do not get CHG in the genital (private) area. Do not get CHG in the eyes, ears, nose or mouth. (If the soap gets into the eyes, flush them immediately with water). Do not wash with regular soap after CHG is used. Pat skin dry with a soft, clean towel. Patient should sleep in freshly laundered night clothes and report for surgery in clean clothes. documented in [facility] History of Present illness Narrative* Kip Nieves MD - 02/02/2024 2:30 PM EDT Images from the original note were not included. Chief Complaint: Hernia History of Present Illness: Heri Rao is a 63 y.o. male who presents for evaluation of a bulge just above his umbilicus. The patient says that he is noticed it over the last several weeks to months. It is slowly gotten bigger in size. It does cause him some degree of discomfort. He says that sometimes when he eats he has more discomfort in that area. The patient has a history of a laparoscopic colectomy done more than 10 years ago. The patient did have a supraumbilical port site incision. The patient does smoke. His BMI is 29. He has not diabetic. He has no heart or lung conditions. He does not take any significant antiplatelet agents. Hx of lap colectomy HPI Review of Systems Past Medical History: Diagnosis Date Arthritis Benign prostatic hyperplasia Dental disease 2 temporay caps Upper left back Diverticulitis of colon Hyperlipidemia Hypertension Injury of back PMR Skin cancer nose Visual impairment Past Surgical History: Procedure Laterality Date COLON SURGERY resection COLONOSCOPY N/A 08/27/2017 Performed by Sissy Love MD at [facility] ENDOSCOPY COLONOSCOPY DIAGNOSTIC N/A 01/27/2024 Performed by Sissy Love MD at [facility] AM[facility]ULATORY SURGERY FOOT SURGERY Left Allergies Allergen Reactions Penicillins Shortness Of Breath Current Outpatient Medications: aspirin 81 mg, Take 1 tablet (81 mg total) by mouth in the morning., Disp: , Rfl: benazepril (LOTENSIN) 5 mg tablet, Take 1 tablet (5 mg total) by mouth in the morning. Indications:high blood pressure., Disp: , Rfl: predniSONE (DELTASONE) 5 mg tablet, Take 1 tablet (5 mg total) by mouth daily as needed., Disp: , Rfl: simvastatin (ZOCOR) 40 mg tablet, Take 1 tablet (40 mg total) by mouth nightly., Disp: , Rfl: Social History Socioeconomic History Marital status: Spouse name: Not on file Number of children: Not on file Years of education: Not on file Highest education level: Not on file Occupational History Not on file Tobacco Use Smoking status: Every Day Current packs/day: 0.50 Types: Cigarettes Smokeless tobacco: Never Vaping Use Vaping status: Never Used Substance and Sexual Activity Alcohol use: No Drug use: No Sexual activity: Defer Other Topics Concern Not on file Social History Narrative Not on file Social Determinants of Health Financial Resource Strain: Low Risk (09/28/2023) Received from [facility], [facility] Overall Financial Resource Strain (CARDIA) Difficulty of Paying Living Expenses: Not hard at all Food Insecurity: No Food Insecurity (02/02/2024) Hunger Screening Food Insecurity - Worry: Never True Food Insecurity - Inability: Never True Transportation Needs: No Transportation Needs (09/28/2023) Received from [facility], [facility] Transportation In the past 12 months, has lack of transportation kept you from medical appointments or from getting medications?: No Lack of Transportation (Non-Medical): Not on file Physical Activity: Not on file Stress: Not on file Social Connections: Not on file Interpersonal Safety: Not At Risk (09/28/2023) Received from [facility], [facility] Humiliation, Afraid, Rape, and Kick questionnaire Fear of Current or Ex-Partner: No Emotionally Abused: No Physically Abused: No Sexually Abused: No Housing Instability: Low Risk (09/28/2023) Received from [facility], [facility] Housing Stability Vital Sign Unable to Pay for Housing in the Last Year: Not on file Number of Places Lived in the Last Year: Not on file In the last 12 months, was there a time when you did not have a steady place to sleep or slept in ashelter (including now)?: No Family History Problem Relation Age of Onset Hypertension Mother Breast cancer Mother Physical Exam Constitutional: Appearance: He is well-developed. HENT: Head: Normocephalic and atraumatic. Eyes: Conjunctiva/sclera: Conjunctivae normal. Pupils: Pupils are equal, round, and reactive to light. Neck: Vascular: No JVD. Pulmonary: Effort: Pulmonary effort is normal. Breath sounds: Normal breath sounds. No stridor. Abdominal: General: Bowel sounds are normal. Palpations: Abdomen is soft. There is no mass. Hernia: A hernia is present. Musculoskeletal: General: No tenderness or deformity. Cervical back: Normal range of motion and neck supple. Skin: General: Skin is warm and dry. Neurological: Mental Status: He is alert and oriented to person, place, and time. Psychiatric: Behavior: Behavior normal. Thought Content: Thought content normal. Judgment: Judgment normal. Vital Signs: Height 172.7 cm (5' 8 ), weight 88 kg (194 lb). Respiratory Source: No data recorded Admission Weight: Weight: 88 kg (194 lb) Labs: No results found for: WBC , HGB , HCT , MCV , PLT Lab Results Component Value Date CREATININE 0.93 12/13/2023 No results found for: AMYLASE No results found for: LIPASE No results found for: ALT , AST , GGT , ALKPHOS , LABBILI No results found for: INR , PROTIME Imaging: I independently reviewed and interpreted the relevant CT scan images in conjunction with the official radiographic reads to helped formulate a clinical impression Assessment: Heri Rao is a 63 y.o.male with a small port site incisional hernia. The patient is a good candidate for a simple incisional primary hernia repair without mesh. I explained to the patient the risks, benefits and alternatives to the operation. Plan: Primary incisional hernia repair Evaluation included: Preparing to see the patient (e.g., review of tests) Obtaining and/or reviewing separately obtained history Performing a medically appropriate examination and/or evaluation Counseling and educating the patient/family/caregiver Referring and communicating with other health healthcare administrative assistant documented in this encounterMercy Health West HospitalStudio Ous[facility] Havenwyck [id number] History of Present illness Narrative* Dorcas Liu, WHEEL POLISHER-BAGGAGE PORTER - 01/04/2024 9:15 AM EDT Images from the original note were not included. [facility] Colorectal Surgery [address] [address] Patient: Heri Rao Date of : 1960 Encounter Date: 01/04/2024 History of Present Illness: The patient is a 63 y.o. male, an established patient, and is here for Establish Care (Follow up ) . 63-year-old male who is here in the office today to follow up regarding change in bowel habit/constipation. Patient has been moving his bowels typically small amounts daily the stools pebble like then he will have loose watery diarrhea followed by several formed bowel movements. He states he thinkshe drinks about 64 oz of water a day, has multiple cups of coffee in the morning, he increase his dietary fiber. He does not currently take any fiber supplement, stool softener, laxative. He is also concerned about management of his hernia. Past Medical, Family, and Social History Update: The following portions of the patient's history were reviewed and updated as appropriate: allergies, current medications, past family history, past medical history, past social history, past surgicalhistory and problem list. Past Medical History: Diagnosis Date Arthritis Benign prostatic hyperplasia Diverticulitis of colon Hyperlipidemia Skin cancer nose Past Surgical History: Procedure Laterality Date COLON SURGERY resection COLONOSCOPY N/A 08/27/2017 Performed by Sissy Love MD at [facility] FOOT SURGERY Left Family History Problem Relation Age of Onset Hypertension Mother Breast cancer Mother Current Outpatient Medications Medication Sig Dispense Refill aspirin 81 mg Take 1 tablet (81 mg total) by mouth in the morning. benazepril (LOTENSIN) 5 mg tablet Take 1 tablet (5 mg total) by mouth in the morning. Indications: high blood pressure. simvastatin (ZOCOR) 40 mg tablet Take 1 tablet (40 mg total) by mouth nightly. No current facility-administered medications for this visit. (All medications reviewed and updated by provider since last office visit or hospitalization) Allergies: Penicillins Tobacco History: Social History Tobacco Use Smoking Status Every Day Current packs/day: 0.50 Types: Cigarettes Smokeless Tobacco Never (If patient a smoker, smoking cessation counseling offered) Social History: Social History Substance and Sexual Activity Alcohol Use No Review of Systems: CONSTITUTIONAL: [] Good general health Denies: [x] Recent Weight Changes [x] Fatigue [x] Fever [x] Night Sweats Admits: [] Recent Weight Changes [] Fatigue [] Fever [] Night Sweats OPHTHALMOLOGIC: Denies: [x] Glaucoma [x] Double Vision [x] Blindness [x] Implants [x] Cataracts [x] Other Eye Disease [x] Blurred Vision [] Corrective lenses Admits: [] Glaucoma [] Double Vision [] Blindness [] Implants [] Cataracts [] Other Eye Disease [] Blurred Vision [x] Corrective lenses ENT: Denies: [x] Hearing loss [] Ringing in Ear [x] Frequent Sinus Infections [x] Voice Changes [x] SoreThroat Admits: [] Hearing loss [x] Ringing in Ear [] Frequent Sinus Infections [] Voice Changes [] Sore Throat CARDIOVASCULAR: Denies: [x] Chest pain [x] Heat Murmur [x] Palpitations [x] Swelling in Hands/Feet Admits: [] Chest pain [] Heat Murmur [] Palpitations [] Swelling in Hands/Feet RESPIRATORY: Denies: [x] Coughing up blood [x] Asthma [] Cough [x] SOB [x] Wheezing Admits: [] Coughing up blood [] Asthma [x] Cough [] SOB [] Wheezing GASTROINTESTINAL: How often do you move your bowels? every other day Denies: [x] Itching [] Bowel Problems [x] Hemorrhoids [x] Burning [x] Abdominal Pain [x] Constipation [x] Diarrhea [x] Nausea [x] Rectal Bleeding [x] Vomitting Admits: [] Itching [x] Bowel Problems [] Hemorrhoids [] Burning [] Abdominal Pain [] Constipation [] Diarrhea [] Nausea [] Rectal Bleeding [] Vomitting GENITOURINARY: Denies: [x] Kidney Stones [x] Blood in urine Admits: [] Kidney Stones [] Blood in urine MUSCULOSKELETAL: Denies: [x] Broken bones [x] Difficulty walking [x] Muscle cramps [x] Joint stiffness [x] Painful Joints [x] Swollen joints Admits: [] Broken bones [] Difficulty walking [] Muscle cramps [] Joint stiffness [] Painful Joints[] Swollen joints SKIN: Denies: [x] Hair changes [x] Itching [x] Nail Changes [x] Rash Admits: [] Hair changes [] Itching [] Nail Changes [] Rash NEUROLOGIC: Denies: [x] Convulsions [x] Headache [x] Paralysis [x] Seizures [x] Tingling/Numbess [x] Tremor Admits: [] Convulsions [] Headache [] Paralysis [] Seizures [] Tingling/Numbess [] Tremor PSYCHIATRIC: Denies: [x] Insomnia [x] Depression [x] Memory Loss [x] Confusion [x] Mental or Physical Abuse Admits: [] Insomnia [] Depression [] Memory Loss [] Confusion [] Mental or Physical Abuse ENDOCRINE: Denies: [x] Glandular/hormone Problems [] Excessive Thirst [x] Frequent Urination [x] Thyroid problems Admits: [] Glandular/hormone Problems [] Excessive Thirst [] Frequent Urination [] Thyroid problems HEMATOLOGY: Denies: [x] Slow to heal after cuts [x] Bleeding tendency [x] Bruising tendency [x] Enlarged glands Admits: [] Slow to heal after cuts [] Bleeding tendency [] Bruising tendency [] Enlarged glands GENERAL HEALTH ISSUES: [] Alcoholism [] Cancer: WOMEN ONLY: [] Abnormal vaginal bleeding [] Endometriosis [] Menopause [] Menopause [] Menstrual problems [] Pelvic Pain [] Vaginal discharge/itching [] Chance of [] Date of LMP?: Breast: [] Breast lumps [] Breast pain [] Nipple discharge MEN ONLY: [] Testicle pain [] Sexual problems Physical Exam: BP 133/84 (BP Site: Right Arm, BP Postition: Sitting) Pulse 82 Ht 172.7 cm (5' 8 ) Wt 89.3 kg(196 lb 12.8 oz) BMI 29.92 kg/m GENERAL APPEARANCE: Healthy, clean, appropriately dressed. HEAD: Atraumatic, no deformities. EYES: PERRLA, lids normal. ENT: Nasal passages clear, mucous membranes moist, no oral lesion. NECK: Soft, midline trachea, no bruits, no masses. LUNGS: Clear to auscultation bilaterally. CARDIOVASCULAR: Regular rate & rhythm, no murmurs. ABDOMEN: Soft, non tender, non distended with active bowel sounds. PERIANAL: Deferred NEUROMUSCULAR: Cranial nerves intact, good strength, normal sense of touch, normal gait. EXTREMITIES: No edema, palpable pulses, good range of motion. PSYCH: Awake, alert and oriented, answers questions appropriately, memory appears accurate, demonstrates normal insight and judgement. Mallampati Score: [] 1 [] 2 [] 3 [] 4 Assessment and Plan: His change in bowel habit and constipation he is scheduled for colonoscopy next month. We discussedto drink at least 64 oz of water daily, start fiber supplement, increase dietary fiber. If no improvement, okay to start MiraLax 1-2 cap fulls daily. We will give him referral to general surgery service regarding his supraumbilical hernia for further recommendations. Follow-up: After colonoscopy JACQUELINE Barnes 01/04/24 0932 [facility] NoteOrthopedic Surgery Subjective Chief complaint: Chief Complaint Patient presents with Left Wrist - Follow-up Heri Rao is a 63 y.o. year old male presenting for evaluation of his left carpal tunnel symptoms. Last time he was here we did a corticosteroid injection into the left carpal tunnel. He states that that is helped significantly and he feels much better. He does have some complains of some discomfort in the right thumb and occasional tenderness in the right long finger. Previous Treatments: Corticosteroid injection for carpal tunnel, stretching Patient History History reviewed. No pertinent surgical history. Past Medical History: Diagnosis Date Arthritis 05/2007 Cancer (CMS/[facility]) Skin cancer 2005 CTS (carpal tunnel syndrome) Hypertension 01/2019 Trigger finger 01/2020 Objective General: Body mass index is 29.5 kg/m???. No acute distress, comfortable Respiratory: Unlabored breathing with normal rate, no cough Cardiovascular: Warm well perfused extremities Psych: Appropriate mood behavior Hand/Wrist Musculoskeletal Exam Inspection Right Right hand/wrist inspection is normal. Palpation Right Thumb tenderness to palpation: carpometacarpal joint Middle tenderness to palpation: A1 xi Dorsal hand - 1st metacarpal tenderness to palpation: CMC Range of Motion Right Hand Right hand range of motion is normal. Neurovascular Right Right neurovascular exam is normal. Left Ulnar nerve sensory distribution: normal Median nerve sensory distribution: normal Superficial radial nerve sensory distribution: normal Special Tests Right CMC grind test: positive Left Phalen's: negative Tinel's - carpal tunnel: positive Special tests additional comments: the Tinel's at the carpal tunnel on the left side is very minimal. Imaging: None Assessment/Plan Heri Rao is a 63 y.o. year old male with No diagnosis found. PLAN: he is doing much better. The right hand does not bother him enough to have any type of treatment other than some stretching that we showed him for the long finger. We will continue stretching for the left carpal tunnel and see him back if his symptoms recur, or worsen.[facility] 10-18-2023 Evaluation note* Encounter Date Diagnosis Assessment Notes Treatment Notes Treatment Clinical Notes Oct, Hyperlipidemia type II (ICD-10 - E78.01) [facility] Other 01-23-2024 NoteOrthopedic Surgery Subjective Follow-up of the Right Hand and Follow-up of the Left Hand 09/28/23 Patient is a 63-year-old [id number] male that returns forFollow-up evaluation of bilateral carpal tunnel syndrome as well as right index trigger finger and left ring finger trigger finger. Patient had undergone home stretching program and night splinting at last appointment. Patient states that he continues to have persistent bilateral carpal tunnel syndrome worse in his right than his left hand. He states that stretching seems to be helping his trigger fingers bilaterally he is no longer having triggering as he used to. He does wear finger splints on his hand to keep them in extension. He states that his pain is worse with activity and using his hands even simple things around the house such as shopping food when preparing meals. Patient states that the night splints do provide some improvement in the numbness and tingling at night however he can have it at baseline rest as well. 08/03/23 Heri Rao is a 63 y.o. male presenting as a new patient for evaluation for bilateral carpal tunnel symptoms as well as triggering of his right index and left ring fingers. Patient states that the triggering he has been experiencing for over 2 years however he has tried splinting in the past which has improved his symptoms and he states that most recently his trigger fingers are not bothering him nearly as much. Patient states that he has been dealing with the numbness and tingling of his bilateral thumb index and long fingers for about a year. He states that it will intermittently wake him up at night. Patient denies the use of night splints. Patient denies use of anti-inflammatory medications or corticosteroid injections. Patient History History reviewed. No pertinent surgical history. Past Medical History: Diagnosis Date Arthritis 05/2007 Cancer ([facility]) Skin cancer 2005 CTS (carpal tunnel syndrome) Hypertension 01/2019 Trigger finger 01/2020 Objective General: Body mass index is 29.5 kg/m???. No acute distress, comfortable Bilateral UE/Hand: Inspection- no ecchymosis, no erythema, no deformity Tender to palpation over the A1 xi of the right index finger Nontender to palpation over remainder of patient's bilateral hands and wrists Thumb: normal A1 ix and AROM, Index finger: TTP over A1 xi, w/o triggering on R only, Long finger: normal A1 xi and AROM, Ring finger: normal A1 xi and AROM, NTTP to [id number] on L, and Small finger: normal A1 xi and AROM Strength: solution specialist 5/5, thumb 5/5, interossei 5/5. wrist extension/flexion 5/5 Sensation: intact over median, ulnar, and radial nerve distributions Positive carpal tunnel compression and Positive Tinel's at the Carpal Tunnel bilaterally Cardiovascular: Well-perfused digits Imaging None taken today Assessment/Plan Heri Rao is a 63 y.o. male with bilateral CTS still causing persistent n/t, trigger finger of R index and L ring both are improving -Discussed with the patient his clinical findings today including continued conservative management such as observation at home stretching, corticosteroid injections as well as surgical release. Patient states that he would like to attempt bilateral corticosteroid injections to his carpal tunnel which we will perform today and documented as such. Informed consent was obtained verbally. Additionally patient's trigger fingers are improving since last appointment we will continue to monitor these. Patient is in agreement with treatment plan. Patient to follow-up in 6 weeks repeat clinical examination. Karlo Peraza MD Orthopedic Surgery, PGY-3 09/28/23 1:35 PM By using the attestations below, the signing clinician agrees that I have read and verify that the documentation has been personally reviewed by me and ensure that the documentation accurately reflects the encounter. Office Visit Attestation GC: I personally saw this patient on the day of the encounter, performed the alva portion(s) of the service and participated in the management and confirm the resident's documentation. Please note there may be an additional personal documentation from me. Procedure Attestation Level of Attending Supervision for Procedure I was present for the alva and critical portions and I was otherwise immediately available to assistCore[facility] NotePatient ID: Heri Rao is a 63 y.o. male. Steroid Injections for carpal tunnel syndrome on 09/28/2023 1:48 PM Indications: (Carpal tunnel symptoms) Details: 25 G needle, volar approach Medications: 3 mL lidocaine 10 mg/mL (1 %); 2 mL triamcinolone acetonide 10 mg/mL Outcome: tolerated well, no immediate complications After discussing the treatment options, and the risks and benefits of a corticosteroid injection, verbal consent to proceed was obtained. In the clinic today, the benefits, risks and potential side effects of the injection were discussed, and verbal consent was given. The area just proximal to the left wrist crease was prepped with Betadine. Using a 25-gauge needle, the carpal tunnel was carefully injected with a combination of 2 mL of Kenalog 10 mg/mL and 3 mL of 1% plain lidocaine. The area was wiped clean with alcohol and dressed with a Band-Aid. Instructions were given to be cautious as the hand most likely will be numb for the next couple hours, and to apply ice to the site later today. Procedure, treatment alternatives, risks and benefits explained, specific risks discussed. Consent was given by the patient. Immediately prior to procedure a time out was called to verify the correct patient, procedure, equipment, aviation support equipment repairer and site/side marked as required. Steroid Injections for carpal tunnel syndrome on 09/28/2023 1:49 PM Indications: (Carpal tunnel symptoms) Details: 25 G needle, volar approach Medications: 3 mL lidocaine 10 mg/mL (1 %); 2 mL triamcinolone acetonide 10 mg/mL Outcome: tolerated well, no immediate complications After discussing the treatment options, and the risks and benefits of a corticosteroid injection, verbal consent to proceed was obtained. In the clinic today, the benefits, risks and potential side effects of the injection were discussed, and verbal consent was given. The area just proximal to the right wrist crease was prepped with Betadine. Using a 25-gauge needle, the carpal tunnel was carefully injected with a combination of 2 mL of Kenalog 10 mg/mL and 3 mL of 1% plain lidocaine. The area was wiped clean with alcohol and dressed with a Band-Aid. Instructions were given to be cautious as the hand most likely will be numb for the next couple hours, and to apply ice to the site later today. Procedure, treatment alternatives, risks and benefits explained, specific risks discussed. Consent was given by the patient. Immediately prior to procedure a time out was called to verify the correct patient, procedure, equipment, aviation support equipment repairer and site/side marked as required. By using the attestations below, the signing clinician agrees that I have read and verify that the documentation has been personally reviewed by me and ensure that the documentation accurately reflects the encounter. Office Visit Attestation GC: I personally saw this patient on the day of the encounter, performed the alva portion(s) of the service and participated in the management and confirm the resident's documentation. Please note there may be an additional personal documentation from me. Procedure Attestation Level of Attending Supervision for Procedure I was present for the alva and critical portions and I was otherwise immediately available to assistCorey [facility]11-[facility] note* Encounter Date Diagnosis Assessment Notes Treatment Notes Treatment Clinical Notes Jul, Primary hypertension (ICD-10 - I10) This patient is instructed to consume a healthy, low-fat, low-salt diet. They are also encouraged to continue exercise to achieve/maintain a normal BMI. Patient is instructed on home BP measurements: - rest for 5 minutes w/o talking- positioned w/ feet on floor and arm supported- average best 2/3 readings w/ goal < 135/85 Jul, Hyperlipidemia type II (ICD-10 - E78.01) Instructed on diet and exercise with continued statin therapy.Discussed the beneficial effects of lowering cholesterol in reducing the risk for cerebrovascular and cardiovascular disease. Jul, Cigarette nicotine dependence without complication (ICD-10 - F17.210) This patient has been encouraged to quit tobacco use immediately. They are aware of the hazards associated with tobacco use, including but not limited to respiratory infections, vascular disease and cancers. Schedule LDCT at wellness examination Jul, Bilateral carpal tunnel syndrome (ICD-10 - G56.03) Wrist splints were prescribed but he no longer is wearing - no benefit occurred while wearing splints. Discussed cause and treatment: - Scheduled to see hand surgeon Explained, likely will schedule for EMG/NCS to quantitate severity. Jul, Primary osteoarthritis of right shoulder (ICD-10 - M19.011) Continue ROM exercises. Ice/heat and Tylenol. Steroids intermittently as needed but aware of the adverse effects possible. He will be discussing w Dr. 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 Jul, Overweight (ICD-10 - E66.3) This patient has been instructed on a low-fat, high-fiber diet. They are instructed to reduce calories, portion sizes and snacks. It is recommended that they exercise for 30 minutes, 3-5 times weekly. [facility] Other 05-30-2023 Evaluation note* Encounter Date Diagnosis Assessment Notes Treatment Notes Treatment Clinical Notes January, Wellness examination (ICD-10 - Z00.00) Healthy diet and exercise. Reviewed age-appropriate preventive testing recommended. January, Primary hypertension (ICD-10 - I10) This patient is instructed to consume a healthy, low-fat, low-salt diet. Patient is instructed on home BP measurements: - rest for 5 minutes w/o talking- positioned w/ feet on floor and arm supported- average best 2/3 readings w/ goal < 135-85 January, Cigarette nicotine dependence without complication (ICD-10 - F17.210) This patient has been encouraged to quit tobacco use immediately. They are aware of the hazards associated with tobacco use, including but not limited to respiratory infections, vascular disease and cancers. January, Hyperlipidemia type II (ICD-10 - E78.01) Instructed on diet and exercise with continued statin therapy.Discussed the beneficial effects of lowering cholesterol in reducing the risk for cerebrovascular and cardiovascular disease. January, Bilateral carotid bruits (ICD-10 - R09.89) Continue ASA and statin therapy. Carotid US scheduled January, Trigger index finger of right hand (ICD-10 - M65.321) Refer to hand surgery. ROM exercises, soak in warm water January, Bilateral carpal tunnel syndrome (ICD-10 - G56.03) Refer to hand surgeon. Symptoms more frequent. [facility] Other 02-28-2023 Evaluation note* Encounter Date Diagnosis Assessment Notes Treatment Notes Treatment Clinical Notes Oct, COVID (ICD-10 - U07.1) Aware of quarantine guidelines. Self isolate at home. - Cannot work - avoid contact with others - avoid pets - wipe counters, door knobs if touched - if can't avoid leaving home, must wear mask to protect others - need to stay isolated for 10 days from onset of symptoms or contact with COVID positive individual - to discontinue isolation must be 10 days AND must be without fever for 24 hours AND symptoms must be improving. Always wear a mask in public places. Oct, Essential hypertension (ICD-10 - I10) This patient is instructed to consume a healthy, low-fat, low-salt diet. They are also encouraged to continue exercise to achieve/maintain a normal BMI. Oct, Cigarette nicotine dependence (ICD-10 - F17.210) This patient has been encouraged to quit tobacco use immediately. They are aware of the hazards associated with tobacco use, including but not limited to respiratory infections, vascular disease and cancers. [facility] Other Evaluation noteNo InformationNort Network Foundation [employer] Other Evaluation note* Diagnosis Onset Date Resolution Status Benign prostatic hyperplasia with lower urinary tract symptoms acute Cigarette nicotine dependence acute Essential hypertension acute Hypercholesterolemia acute Inflammatory polyarthropathy acute Screening PSA (prostate specific antigen) noneactive Welcome to Medicare preventive visit noneactive [facility] Work Phone: Evaluation note* Diagnosis Change in bowel habits- Primary Other symptoms involving digestive system Supraumbilical hernia- Primary Change in bowel habits Other symptoms involving digestive system documented in this encounter [facility]* Diagnosis Supraumbilical hernia documented in this encounter [facility]* Diagnosis Preop testing- Primary Unspecified pre-operative examination documented in this encounter [facility] SystemEvaluation [facility]* Diagnosis Incisional hernia, without obstruction or gangrene- Primary [facility] Narrative - Reported* Type Description Date Medical History Biceps tendonitis on right Medical History Trigger finger, left index finge r Medical History Body mass index (BMI) of 25.0 to 29.9 Medical History Cigarette nicotine dependence Medical History Hyperlipidemia type II Medical History Essential hypertension Medical History Carpal tunnel syndrome of right wrist Medical History Cervical spondylosis with radicu lopathy Medical History Hyponatremia Medical History Leucocytosis Medical History Anemia Medical History Inflammatory polyarthropathy Medical History H/O polymyalgia rheumatica Medical History Polymyalgia rheumatica Medical History Mitral regurgitation Medical History Benign prostatic hyp erplasia with lower urinary tract symptoms Medical History Erectile dysfunction due to darius rial insufficiency Medical History Melanoma of skin Surgical History Colonoscopy 2006 Surgical History Segmoid Resection 08/2017 Hospitalization History see surgical history [facility] Other InstructionsNot on filedocumented in this encounter MedesenInstructionsNot on filedocumented in this encounter MedesenInstructionsNot on filedocumented in this encounter MedesenReason for referral (narrative)* Consultation (Routine) - Pending Review Specialty Diagnoses / Procedures Referred By Maria Antonia alejandro Referred To Contact General Surgery Diagnoses Supraumbilical hernia Dorcas Liu APRN-CNP [address] [place] [address] Kip Nieves MD [address] [facility] [place] [address] Referral ID Status Reason Start Date Expiration Date Visits Requested Visits Authorized [id number] Pending Review Specialty Services Required 01/04/2024 01/03/2025 1 1 [facility] Summary Purpose Family History Relationship Condition Age at Onset Recorded Date/T jessica father Hyperlipidemia Unknown History of stroke Unknown Not Specified Malignant neoplasm Unknown Relationship Condition Age at Onset Recorded Date/T jessica father Hyperlipidemia Unknown History of stroke Unknown Cerebrovascular accident (CVA) Unknown mother Malignant neoplasm Unknown Hypertension Unknown Advance Directives Advance Directive Response Recorded Date/ Time Advance Directives No September 29, 2023 1:28pm Advance Directive Response Recorded Date/ Time Advance Directives No September 29, 2023 12:28pm Chief Complaint and Reason for Visit Chief Complaint Wellness Reason for Visit Benign prostatic hyp erplasia with lower urinary tract symptoms Cigarette nicotine dependence Essential hypertension Hypercholesterolemia Inflammatory polyarthropathy Screening PSA (prostate specific antigen) Welcome to Medicare preventive visit Chief Complaint Wellness ear pain for a week hard to close mouth Reason for Visit Benign prostatic hyp erplasia with lower urinary tract symptoms Cigarette nicotine dependence Essential hypertension Hypercholesterolemia Inflammatory polyarthropathy Screening PSA (prostate specific antigen) Welcome to Medicare preventive visit Chief Complaint Admit Date CC Adult Risk Stratification August [id number] 2:37pm 6 month August 08, 2024 9 :50am 1 month f/u September 18, 2024 1 1:28am Reason for Visit Admit Date Cigarette nicotine dependence August 082023 9:50am Essential hypertension August 08 9:50am Inflammatory polyarthropathy August 9:50am Trigger finger, right middle finger Dece mber 2023 9:50am Cigarette nicotine dependence September 182024 11:28am Essential hypertension September 18 11:28am Reason for Referral Specialty Diagnoses / Procedures Referred By Maria Antonia alejandro Referred To Contact Diagnoses Preop testing Procedures ECG 12 lead Peter Colon MD [address] [place] [address] [place] [address] Referral ID Status Reason Start Date Expiration Date V isits Requested Visits Authorized [id number] Pending Review 03/02/2024 03/02/2025 1 1 Additional Source Comments (unrecognized sect ion and content) No Status Records FoundNo Status Records FoundNo Status Records Found INFORMATION SOURCE (unrecogn ized section and content) DATE CREATED AUTHOR 02/24/2022 [facility] DATE CREATED AUTHOR AUTHOR'S ORGANIZ ATION 03/26/2024 [facility] DATE CREATED AUTHOR AUTHOR'S ORGANIZ ATION 09/01/2024 [facility] REASON FOR VISIT (unrecogniz ed section and content) Reason Comments Establish Care Follow up Reason Comments New Patient Umb hernia Specialty Diagnoses / Procedures Referred By Maria Antonia alejandro Referred To Contact General Surgery Diagnoses Supraumbilical hernia Dorcas Liu, WHEEL POL[employer] [address] [address] Kip Nieves MD [address] [facility], [address] [place] [address] Referral ID Status Reason Start Date Expiration Date Visits Requested Visits Authorized [id number] Pending Review Specialty Services Required 01/04/2024 01/03/2025 1 1 Reason Comments Establish Care EST PT 1ST POST OP Care Teams (unrecognized sec tion and content) Team Status: Active Member Role Status Dates Daren Aldridge DO Primary Care Provider Active Team Status: Active Member Role Status Dates Daren Aldridge , Primary Care Provide r, Attending Provider Active Start: August 01, 2024 Team Status: Inactive Member Role Status Dates Daren Aldridge , DO Primary Care Provide r, Attending Provider Active Start: August 08, 2024 End: August 08, 2024 Team Status: Inactive Member Role Status Dates Daren Aldridge , Primary Care Provide r, Attending Provider Active Start: September 18, 2024 End: September 18, 2024 Team Status: Inactive Member Role Status Dates Daren Aldridge DO Primary Care Provide r, Attending Provider Active Start: February 01, 2024 End: February 01, 2024 Team Status: Inactive Member Role Status Dates Daren Aldridge , DO Primary Care Provide r, Attending Provider Active Start: March 15, 2024 End: March 15, 2024 Shelf Drier Operator Relationship Specialty Start Date End Date Daren Aldridge DO [address] [place], [place] [id number] PCP - General 08/12/17 Shelf Drier Operator Relationship Specialty Start Date End Date Daren Aldridge DO [address] [place] [id number] PCP - General 08/12/17 Shelf Drier Operator Relationship Specialty Start Date End Date Daren Aldridge DO [address] [place] [address] [id number] PCP - General 08/12/17 Shelf Drier Operator Relationship Specialty Start Date End Date Daren Aldridge DO [address] [place] [address] [id number] PCP - General 08/12/17 Goals (unrecognized section and content) Goals may be documented in a n alternate section FOR RECORDS PERTAINING TO PATIENTS WHO ARE OR HAVE BEEN ENROLLED IN A CHEMICAL DEPENDENCY/SUBSTANCEABUSE PROGRAM, SOME INFORMATION MAY BE OMITTED. This clinical summary was aggregated from multiple sources. Caution should be exercised in using it in the provision of clinical care. This summary normalizes information from multiple sources, and as a consequence, information in this document may materially change the coding, format and clinical context of patient data. In addition, data may be omitted in some cases. CLINICAL DECISIONS SHOULD BE BASED ON THE PRIMARY CLINICAL RECORDS. [facility] [employer] [facility]. provides no warranty or guarantee of the accuracy or completeness of information in this document.
[2025-02-02 10:27] LABS: Basophils Absolute Auto 0.1 10^3/uL (0.0-0.1); Basophils Percent Auto 0.8 % (0.2-2.0); Eosinophils Absolute Auto 0.3 10^3/uL (0.0-0.7); Eosinophils Percent Auto 2.7 % (0.9-7.0); Hematocrit 42.6 % (42.0-54.0); Hemoglobin 14.7 g/dL (14.0-18.0); Immature Granulocytes Abs Auto 0.14 10^3/uL (0.00-0.03); Immature Granulocytes Pct Auto 1.4 % (0.0-0.5); Lymphocytes Absolute Auto 1.7 10^3/uL (1.2-3.8); Lymphocytes Percent Auto 16.8 % (20.5-60.0); Mean Corpuscular HGB Conc 34.5 g/dL (29.9-35.2); Mean Corpuscular Hemoglobin 31.2 pg (25.9-34.0); Mean Corpuscular Volume 90.4 fL (80.0-94.0); Mean Platelet Volume 8.7 fL (9.5-13.5); Monocytes Absolute Auto 0.9 10^3/uL (0.3-0.8); Monocytes Percent Auto 8.9 % (1.7-12.0); Neutrophils Absolute Auto 6.9 10^3/uL (1.4-6.5); Neutrophils Percent Auto 69.4 % (43.0-75.0); Platelet Count 306 10^3/uL (150-450); Red Blood Count 4.71 10^6/uL (4.70-6.10); Red Cell Distribution Width 12.9 % (11.0-15.0)
[2025-02-02 10:59] LABS: Alanine Aminotransferase 22 U/L (16-63); Albumin Globulin Ratio 1.1; Albumin Level 3.8 g/dL (3.4-5.0); Alkaline Phosphatase 73 U/L (46-116); Anion Gap 11.6; Aspartate Amino Transferase 20 U/L (15-37); BUN Creatinine Ratio 19.5; Bilirubin Total 0.4 mg/dL (0.2-1.0); Carbon Dioxide 26.6 mmol/L (21.0-32.0); Chloride 102 mmol/L (98-107); Chol HDL Ratio 2.4; Cholesterol 142 mg/dL (<=200); Estimated GFR (African America >60 (>=60 mL/min/1.73m^2); Estimated GFR (Non-African Ame >60 (>=60 mL/min/1.73m^2); Globulin 3.5 g/dL; Glucose 106 mg/dL (74-106); HDL Cholesterol 60 mg/dL (40-60); LDL Cholesterol Calculated 71.6 mg/dL; Potassium 4.2 mmol/L (3.5-5.1); Sodium 136 mmol/L (136-145); Total Protein 7.3 g/dL (6.4-8.2); Triglycerides 52 mg/dL (<=150); VLDL CHOLESTEROL 10.4 mg/dL
[2025-02-02 11:12] LABS: Prostate Specific Antigen Scrn 1.08 ng/mL (<=4.00)
== END 2025-02-02 10:06 | disposition home or self-care (01) ==
PROVIDERS: PCP Internal Medicine; Visit Provider Internal Medicine
DX: E78.00 Pure hypercholesterolemia, unspecified (principal); M06.4 Inflammatory polyarthropathy; I10 Essential (primary) hypertension; Z12.5 Encounter for screening for malignant neoplasm of prostate
CPT/HCPCS: 36415; 80053; 80061; 85025; G0103